=== PATIENT | male | born 1930 | race Caucasian/White ===

== ENCOUNTER 2016-09-16 18:33 | Emergency (ER) | payer MEDICARE, BC ==
[2016-09-16 20:14] LABS: BASO % 0.4 % (0-6); EOS % 7.6 % (0-6); GRAN % 60.7 % (47-80); HEMATOCRIT 39.4 % (42.0-52.0); HEMOGLOBIN 12.7 gm/dl (14.0-18.0); LYMPH % 21.5 % (16-45); MEAN CELL VOLUME 81.2 fl (81-97); MEAN CORPUSCULAR HGB CONC 32.2 g/dl (32-36); MEAN PLATELET VOLUME 9.5 fl (7.4-10.4); MONO % 9.8 % (0-9); PLATELET COUNT 191 K/uL (130-400); RED BLOOD COUNT 4.85 M/uL (4.40-5.70); RED CELL DISTRIBUTION WIDTH 14.2 % (11.5-14.5); WHITE BLOOD COUNT W/O DIFF 7.8 K/uL (4.2-12.2)
[2016-09-16 20:17] LABS: MEAN CORPUSCULAR HEMOGLOBIN 26.1 pg (27-33)
[2016-09-16 20:18] LABS: BLOOD UREA NITROGEN 14 mg/dL (9-20); CREATININE 0.7 mg/dL (0.66-1.25); EST GLOMERULAR FILTRATION RATE > 60 ml/min; GLUCOSE,RANDOM 104 mg/dL (70-110)
[2016-09-16 20:32] LABS: INR 2.81; PROTHROMBIN TIME (PATIENT) 31.8 SECONDS (9.5-12.1)
--- NOTE | 2016-09-16 20:48 | Emergency Department Record ---
History of Present Illness - General Chief Complaint: Hypertension Stated Complaint: HYPERTENSION Time Seen by Provider: 09/16/16 18:55 Source: Patient Mode of Arrival: Ambulatory Limitations: No limitations - History of Present Illness Initial Comments: pt checked hip bp at home and found it to be 200/ so he came in to be checked out. he has no symptoms. he states his pressure is better now. pt took his night time meds prior to coming in. Complaint: Other Onset/Timin -: Hour(s) Description: Other History of Same: Yes History of Trauma: No Severity: Moderate Improves With: Medication Associated Symptoms: Denies other symptoms - [place] Coma Scale Eye Response: (4) Open spontaneously Motor Response: (6) Obeys commands Verbal Response: (5) Oriented [place] Total: 15 - Related Data Home Medications Medication Instructions Recorded Confirmed Last Taken Carvedilol [Carvedilol] 25 mg PO BID 03/29/14 09/16/16 11/08/15 Digoxin [Digox] 0.125 mg PO DAILY 03/29/14 09/16/16 11/08/15 Warfarin Sodium [Warfarin Sodium] 2.5 mg PO DAILY 03/29/14 11/08/15 11/08/15 Ezetimibe [Zetia] 10 mg PO DAILY 07/11/14 09/16/16 11/08/15 Epinephrine [Epipen 2-Pastor] 0.3 mg IJ NOW 07/25/15 09/16/16 11/08/15 Potassium Gluconate 99 mg PO DAILY 07/25/15 09/16/16 11/08/15 Saw [place] 450 mg PO BID 07/25/15 09/16/16 11/08/15 Colon Health 1 tab PO DAILY 09/16/16 09/16/16 Unknown Metoprolol Succinate 25 mg PO DAILY 09/16/16 09/16/16 Unknown Multivits-Minerals/FA/Lycopene 1 each PO DAILY 09/16/16 09/16/16 Unknown [One Daily Men's Health Tablet] Ubidecarenone [Co Q-10] 100 mg PO DAILY 09/16/16 09/16/16 Unknown Allergies Allergy/AdvReac Type Severity Reaction Status Date / Time bee pollen [Bee Pollen] AdvReac Intermediate SWELLING Verified 11/08/15 09:11 OF THE FACE erythromycin lactobionate AdvReac Intermediate HIVES Verified 11/08/15 09:11 [From Erythrocin] Penicillins AdvReac Intermediate HIVES Verified 11/08/15 09:11 [id number] Reductase AdvReac Intermediate BODY ACHES Verified 11/08/15 09: 11 Inhibitor Travel Screening - Travel/Exposure Within Last 30 Days Have you traveled within the last 30 days?: No - Travel/Exposure Within Last Year Have you traveled outside the [place] in the last year?: No - Additonal Travel Details Have you been exposed to anyone with a communicable illness?: No - Travel Symptoms Symptom Screening: None Review of Systems Reviewed: No additional complaints except as noted below Constitutional: Reports: As per HPI. Denies: Chills, Fever, Malaise, Night sweats, Weakness, Weight change Eyes: Reports: As per HPI. Denies: Eye discharge, Eye pain, Photophobia, Vision change ENT: Reports: As per HPI. Denies: Congestion, Dental pain, Ear pain, Epistaxis , Hearing loss, Throat pain Respiratory: Reports: As per HPI. Denies: Cough, Dyspnea, Hemoptysis, Stridor, Wheezes Cardiovascular: Reports: As per HPI. Denies: Arrhythmia, Chest pain, Dyspnea on exertion, Edema, Murmurs, Orthopnea, Palpitations, Paroxysmal nocturnal dyspnea, Rheumatic Fever, Syncope Endocrine: Reports: As per HPI. Denies: Fatigue, Heat or cold intolerance, Polydipsia, Polyuria Gastrointestinal: Reports: As per HPI. Denies: Abdominal pain, Constipation, Diarrhea, Hematemesis, Hematochezia, Melena, Nausea, Vomiting Genitourinary: Reports: As per HPI. Denies: Dysuria, Frequency, Hematuria, Incontinence, Retention, Testicular pain, Testicular mass, Urgency Musculoskeletal: Reports: As per HPI. Denies: Arthralgia, Back pain, Gout, Joint swelling, Myalgia, Neck pain Skin: Reports: As per HPI. Denies: Bruising, Change in color, Change in hair/ nails, Lesions, Pruritus, Rash Neurological: Reports: As per HPI. Denies: Abnormal gait, Confusion, Headache, Numbness, Paresthesias, Seizure, Tingling, Tremors, Vertigo, Weakness Psychiatric: Reports: As per HPI. Denies: Anxiety, Auditory hallucinations, Depression, Homicidal thoughts, Suicidal thoughts, Visual hallucinations Hematological/Lymphatic: Reports: As per HPI. 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) Hx Pancreatitis: Yes - Hx Genitourinary Disorders: No - ENDOCRINE Hx Endocrine Disorders: Yes Hx Diabetes: Yes ("borderline") Hx Thyroid Disease: Yes - MUSCULOSKELETAL Hx Musculoskeletal Disorders: Yes Hx Arthritis: Yes - PSYCH Hx Psych Problems: No - HEMATOLOGY/ONCOLOGY Hx Hematology/Oncology Disorders: Yes Hx Cancer: Yes (carcinoma face/hand/nose) Hx Blood Transfusions: Yes Hx Blood Transfusion Reaction: No Family Medical History Any Significant Family History?: Yes Hx Cancer: Children, Brother/Sister Hx Diabetes: Brother/Sister *Heart Comment: cousin Hx Kidney Disease: Brother/Sister Hx Stroke: Brother/Sister Physical Exam - General General Appearance: Alert, Oriented x3, Cooperative, No acute distress - Head Head exam: Normal inspection - Eye Eye exam: Normal appearance, PERRL, EOMI Pupils: Normal accommodation - ENT ENT exam: Normal exam, Mucous membranes moist, Normal external ear exam, Normal orophraynx Ear exam: Normal external inspection. negative: External canal tenderness Nasal Exam: Normal inspection. negative: Discharge, Sinus tenderness Mouth exam: Normal external inspection, Tongue normal Teeth exam: Normal inspection. negative: Dental caries Throat exam: Normal inspection. negative: Tonsillar erythema, Tonsillar exudate - Neck Neck exam: Normal inspection, Full ROM. negative: Tenderness - Respiratory Respiratory exam: Normal lung sounds bilaterally. negative: Respiratory distress - Cardiovascular Cardiovascular Exam: Regular rate, Normal rhythm, Normal heart sounds - GI/Abdominal GI/Abdominal exam: Soft, Normal bowel sounds, Pulsatile mass (3cm). negative: Tenderness - Rectal Rectal exam: Deferred - exam: Deferred - Extremities Extremities exam: Normal inspection, Full ROM, Normal capillary refill. negative: Tenderness - Back Back exam: Reports: Normal inspection, Full ROM. Denies: Muscle spasm, Rash noted, Tenderness - Neurological Neurological exam: Alert, CN II-XII intact, Normal gait, Oriented X3 - Psychiatric Psychiatric exam: Normal affect, Normal mood - Skin Skin exam: Dry, Intact, Normal color, Warm Course Vital Signs 09/16/16 18:59 Temperature 97.4 F L Pulse Rate 60 Respiratory 20 Rate Blood Pressure 130/61 Pulse Ox 95 - Reevaluation(s) Reevaluation #1: 09/16/16 20:49 pt feels fine Medical Decision Making - Lab Data Result diagrams: 09/16/16 19:30 09/16/16 19:30 Lab Results 09/16/16 09/16/16 09/16/16 Range/Units 19:30 19:30 19:30 WBC 7.8 (4.2-12.2) K/uL RBC 4.85 (4.40-5.70) M/uL Hgb 12.7 L (14.0-18.0) gm/dl Hct 39.4 L (42.0-52.0) % MCV 81.2 (81-97) fl MCH 26.1 L (27-33) pg MCHC 32.2 (32-36) g/dl RDW 14.2 (11.5-14.5) % Plt Count 191 (130-400) K/uL MPV 9.5 (7.4-10.4) fl Gran % 60.7 (47-80) % Lymphocytes % 21.5 (16-45) % Monocytes % 9.8 H (0-9) % Eosinophils % 7.6 H (0-6) % Basophils % 0.4 (0-6) % PT 31.8 H (9.5-12.1) SECONDS INR 2.81 Sodium 139 (136-145) mmol/L Potassium 4.3 (3.5-5.1) mmol/L Chloride 99 (98-107) mmol/L Carbon Dioxide 27.0 (22-30) mmol/L Anion Gap 13.0 (7-16) BUN 14 (9-20) mg/dL Creatinine 0.7 (0.66-1.25) mg/dL Estimated GFR > 60 ml/min Random Glucose 104 (70-110) mg/dL Calcium 9.0 (8.5-10.1) mg/dL Digoxin 1.40 (0.9-2.0) ng/mL Disposition Disposition: Discharge Clinical Impression: Hypertension Qualifiers: Hypertension type: essential hypertension Qualified Code(s): I10 - Essential ( primary) hypertension Disposition: Home, Self-Care Condition: (1) Good Instructions: Hypertension (ED) Additional Instructions: follow up with family doctor. return sooner if worse. Forms: Patient Portal Access
[2016-09-16 20:54] LABS: THYROID STIMULATING HORMONE 1.61 uIU/ml (0.465-4.68)
== END 2016-09-16 20:56 | disposition home or self-care (01) ==
LOC: ER 18:33
DX: I10 Essential (primary) hypertension (principal); Z87.891 Personal history of nicotine dependence; Z79.01 Long term (current) use of anticoagulants; I25.2 Old myocardial infarction
CPT/HCPCS: 80048; 80162; 84443; 85025; 85610; 99283

== ENCOUNTER 2016-11-10 09:43 | Emergency (ER) | payer MEDICARE, BC ==
[2016-11-10] MEDS ORDERED: ASPIRIN 81 MG CHEWABLE TABLET PO ONE (10:14)
[2016-11-10 10:59] LABS: BASO % 0.3 % (0-6); EOS % 3.9 % (0-6); HEMATOCRIT 39.1 % (42.0-52.0); HEMOGLOBIN 12.8 gm/dl (14.0-18.0); LYMPH % 8.5 % (16-45); MEAN CELL VOLUME 80.3 fl (81-97); MEAN CORPUSCULAR HGB CONC 32.7 g/dl (32-36); MEAN PLATELET VOLUME 8.8 fl (7.4-10.4); MONO % 8.3 % (0-9); PLATELET COUNT 168 K/uL (130-400); RED BLOOD COUNT 4.87 M/uL (4.40-5.70); RED CELL DISTRIBUTION WIDTH 14.3 % (11.5-14.5); WHITE BLOOD COUNT W/O DIFF 9.7 K/uL (4.2-12.2)
[2016-11-10 11:00] LABS: MEAN CORPUSCULAR HEMOGLOBIN 26.2 pg (27-33)
[2016-11-10 11:15] LABS: ANION GAP 8.1 (7-16); BLOOD UREA NITROGEN 11 mg/dL (9-20); CARBON DIOXIDE 24.9 mmol/L (22-30); CREATINE PHOSPHOKINASE 46 U/L (55-170); CREATININE 0.7 mg/dL (0.66-1.25); EST GLOMERULAR FILTRATION RATE > 60 ml/min; GLUCOSE,RANDOM 132 mg/dL (70-110)
[2016-11-10 11:27] LABS: CKMB 0.8 ug/L (0-6)
[2016-11-10 11:28] LABS: TROPONIN I < 0.012 ng/mL (0.00-0.034)
[2016-11-10 14:32] LABS: INR 2.73; PROTHROMBIN TIME (PATIENT) 30.8 SECONDS (9.5-12.1)
--- NOTE | 2016-11-10 14:42 | Emergency Department Record ---
History of Present Illness - General Chief Complaint: Chest Pain Stated Complaint: CHEST PAIN Time Seen by Provider: 11/10/16 10:02 Source: Patient Mode of Arrival: Ambulatory Limitations: No limitations - History of Present Illness Initial Comments: pt had an episode of cp this am. he also noted that his bp was low. pt took a ntg for the cp and then had a near syncopal event. 911 was called. when pt arrived his pressure was 100/ and cp was gone. he states he was started on a second bp med by his chelation dr. SHIN Complaint: Chest pain Onset/Timin -: Hour(s) Onset: Associated with drug use Pain Location: Left chest Pain Radiation: None Quality: Aching Consistency: Now resolved Improves With: Nitroglycerin Treatments Prior to Arrival: Nitroglycerin - Related Data Home Medications Medication Instructions Recorded Confirmed Last Taken Carvedilol [Carvedilol] 25 mg PO BID 03/29/14 09/16/16 11/08/15 Digoxin [Digox] 0.125 mg PO DAILY 03/29/14 09/16/16 11/08/15 Warfarin Sodium [Warfarin Sodium] 2.5 mg PO DAILY 03/29/14 11/08/15 11/08/15 Ezetimibe [Zetia] 10 mg PO DAILY 07/11/14 09/16/16 11/08/15 Epinephrine [Epipen 2-Pastor] 0.3 mg IJ NOW 07/25/15 09/16/16 11/08/15 Potassium Gluconate 99 mg PO DAILY 07/25/15 09/16/16 11/08/15 Saw [place] 450 mg PO BID 07/25/15 09/16/16 11/08/15 Colon Health 1 tab PO DAILY 09/16/16 09/16/16 Unknown Metoprolol Succinate 25 mg PO DAILY 09/16/16 09/16/16 Unknown Multivits-Minerals/FA/Lycopene 1 each PO DAILY 09/16/16 09/16/16 Unknown [One Daily Men's Health Tablet] Ubidecarenone [Co Q-10] 100 mg PO DAILY 09/16/16 09/16/16 Unknown Allergies Allergy/AdvReac Type Severity Reaction Status Date / Time bee pollen [Bee Pollen] AdvReac Intermediate SWELLING Verified 11/08/15 09:11 OF THE FACE erythromycin lactobionate AdvReac Intermediate HIVES Verified 11/08/15 09:11 [From Erythrocin] Penicillins AdvReac Intermediate HIVES Verified 11/08/15 09:11 [id number]-Duv Reductase AdvReac Intermediate BODY ACHES Verified 11/08/15 09: 11 Inhibitor Travel Screening - Travel/Exposure Within Last 30 Days Have you traveled within the last 30 days?: No - Travel/Exposure Within Last Year Have you traveled outside the [place] in the last year?: No - Additonal Travel Details Have you been exposed to anyone with a communicable illness?: No - Travel Symptoms Symptom Screening: None Review of Systems Reviewed: No additional complaints except as noted below Constitutional: Reports: As per HPI. Denies: Chills, Fever, Malaise, Night sweats, Weakness, Weight change Eyes: Reports: As per HPI. Denies: Eye discharge, Eye pain, Photophobia, Vision change ENT: Reports: As per HPI. Denies: Congestion, Dental pain, Ear pain, Epistaxis , Hearing loss, Throat pain Respiratory: Reports: As per HPI. Denies: Cough, Dyspnea, Hemoptysis, Stridor, Wheezes Cardiovascular: Reports: As per HPI. Denies: Arrhythmia, Chest pain, Dyspnea on exertion, Edema, Murmurs, Orthopnea, Palpitations, Paroxysmal nocturnal dyspnea, Rheumatic Fever, Syncope Endocrine: Reports: As per HPI. Denies: Fatigue, Heat or cold intolerance, Polydipsia, Polyuria Gastrointestinal: Reports: As per HPI. Denies: Abdominal pain, Constipation, Diarrhea, Hematemesis, Hematochezia, Melena, Nausea, Vomiting Genitourinary: Reports: As per HPI. Denies: Dysuria, Frequency, Hematuria, Incontinence, Retention, Testicular pain, Testicular mass, Urgency Musculoskeletal: Reports: As per HPI. Denies: Arthralgia, Back pain, Gout, Joint swelling, Myalgia, Neck pain Skin: Reports: As per HPI. Denies: Bruising, Change in color, Change in hair/ nails, Lesions, Pruritus, Rash Neurological: Reports: As per HPI. Denies: Abnormal gait, Confusion, Headache, Numbness, Paresthesias, Seizure, Tingling, Tremors, Vertigo, Weakness Psychiatric: Reports: As per HPI. Denies: Anxiety, Auditory hallucinations, Depression, Homicidal thoughts, Suicidal thoughts, Visual hallucinations Hematological/Lymphatic: Reports: As per HPI. 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) Hx Pancreatitis: Yes - Hx Genitourinary Disorders: No - ENDOCRINE Hx Endocrine Disorders: Yes Hx Diabetes: Yes ("borderline") Hx Thyroid Disease: Yes - MUSCULOSKELETAL Hx Musculoskeletal Disorders: Yes Hx Arthritis: Yes - PSYCH Hx Psych Problems: No - HEMATOLOGY/ONCOLOGY Hx Hematology/Oncology Disorders: Yes Hx Cancer: Yes (carcinoma face/hand/nose) Hx Blood Transfusions: Yes Hx Blood Transfusion Reaction: No Family Medical History Any Significant Family History?: No Hx Cancer: Children, Brother/Sister Hx Diabetes: Brother/Sister *Heart Comment: cousin Hx Kidney Disease: Brother/Sister Hx Stroke: Brother/Sister Physical Exam - General General Appearance: Alert, Oriented x3, Cooperative, No acute distress - Head Head exam: Normal inspection - Eye Eye exam: Normal appearance, PERRL, EOMI Pupils: Normal accommodation - ENT ENT exam: Normal exam, Mucous membranes moist, Normal external ear exam, Normal orophraynx Ear exam: Normal external inspection. negative: External canal tenderness Nasal Exam: Normal inspection. negative: Discharge, Sinus tenderness Mouth exam: Normal external inspection, Tongue normal Teeth exam: Normal inspection. negative: Dental caries Throat exam: Normal inspection. negative: Tonsillar erythema, Tonsillar exudate - Neck Neck exam: Normal inspection, Full ROM. negative: Tenderness - Respiratory Respiratory exam: Normal lung sounds bilaterally. negative: Respiratory distress - Cardiovascular Cardiovascular Exam: Regular rate, Normal rhythm, Normal heart sounds - GI/Abdominal GI/Abdominal exam: Soft, Normal bowel sounds. negative: Tenderness - Rectal Rectal exam: Deferred - exam: Deferred - Extremities Extremities exam: Normal inspection, Full ROM, Normal capillary refill. negative: Tenderness - Back Back exam: Reports: Normal inspection, Full ROM. Denies: Muscle spasm, Rash noted, Tenderness - Neurological Neurological exam: Alert, CN II-XII intact, Normal gait, Oriented X3 - Psychiatric Psychiatric exam: Normal affect, Normal mood - Skin Skin exam: Dry, Intact, Normal color, Warm Course Vital Signs 11/10/16 11/10/16 11/10/16 09:46 10:00 11:30 Temperature 97.4 F L Pulse Rate 84 Pulse Rate [ 84 75 Pulse Ox Probe] Respiratory 18 18 16 Rate Blood Pressure 128/76 Blood Pressure 101/63 99/63 [Right Arm] Pulse Ox 98 98 98 11/10/16 11/10/16 11/10/16 12:00 13:32 14:06 Temperature Pulse Rate Pulse Rate [ 76 78 103 H Pulse Ox Probe] Respiratory 16 18 20 Rate Blood Pressure Blood Pressure 115/69 125/76 120/82 [Right Arm] Pulse Ox 98 98 95 - Reevaluation(s) Reevaluation #1: 11/10/16 14:42 pts thoracic aneurysm was discussed with dr delaney and with dr burgess who will see pt in follow up. both agreed with stopping metoprolol Medical Decision Making - Lab Data Result diagrams: 11/10/16 10:20 11/10/16 10:15 Lab Results 11/10/16 11/10/16 11/10/16 Range/Units 10:15 10:15 10:20 WBC 9.7 (4.2-12.2) K/uL RBC 4.87 (4.40-5.70) M/uL Hgb 12.8 L (14.0-18.0) gm/dl Hct 39.1 L (42.0-52.0) % MCV 80.3 L (81-97) fl MCH 26.2 L (27-33) pg MCHC 32.7 (32-36) g/dl RDW 14.3 (11.5-14.5) % Plt Count 168 (130-400) K/uL MPV 8.8 (7.4-10.4) fl Gran % 79.0 (47-80) % Lymphocytes % 8.5 L (16-45) % Monocytes % 8.3 (0-9) % Eosinophils % 3.9 (0-6) % Basophils % 0.3 (0-6) % PT (9.5-12.1) SECONDS INR D-Dimer 1.57 H (0-0.59) mg/L FEU Sodium 140 (136-145) mmol/L Potassium 4.0 (3.5-5.1) mmol/L Chloride 107 (98-107) mmol/L Carbon Dioxide 24.9 (22-30) mmol/L Anion Gap 8.1 (7-16) BUN 11 (9-20) mg/dL Creatinine 0.7 (0.66-1.25) mg/dL Estimated GFR > 60 ml/min Random Glucose 132 H (70-110) mg/dL Calcium 8.5 (8.5-10.1) mg/dL Creatine Kinase 46 L (55-170) U/L CK-MB (CK-2) 0.8 (0-6) ug/L Troponin I < 0.012 (0.00-0.034) ng/mL 11/10/16 Range/Units 10:55 WBC (4.2-12.2) K/uL RBC (4.40-5.70) M/uL Hgb (14.0-18.0) gm/dl Hct (42.0-52.0) % MCV (81-97) fl MCH (27-33) pg MCHC (32-36) g/dl RDW (11.5-14.5) % Plt Count (130-400) K/uL MPV (7.4-10.4) fl Gran % (47-80) % Lymphocytes % (16-45) % Monocytes % (0-9) % Eosinophils % (0-6) % Basophils % (0-6) % PT 30.8 H (9.5-12.1) SECONDS INR 2.73 D-Dimer (0-0.59) mg/L FEU Sodium (136-145) mmol/L Potassium (3.5-5.1) mmol/L Chloride (98-107) mmol/L Carbon Dioxide (22-30) mmol/L Anion Gap (7-16) BUN (9-20) mg/dL Creatinine (0.66-1.25) mg/dL Estimated GFR ml/min Random Glucose (70-110) mg/dL Calcium (8.5-10.1) mg/dL Creatine Kinase (55-170) U/L CK-MB (CK-2) (0-6) ug/L Troponin I (0.00-0.034) ng/mL Disposition Disposition: Discharge Clinical Impression: Near syncope, Thoracic aortic aneurysm without rupture Chest pain Qualifiers: Chest pain type: unspecified Qualified Code(s): R07.9 - Chest pain, unspecified Disposition: Home, Self-Care Condition: (1) Good Instructions: Chest Pain (ED), Thoracic Aortic Aneurysm (ED), Hypotension (ED) Additional Instructions: follow up with dr delaney and dr burgess. return sooner if worse. stop metoprolol. Forms: Patient Portal Access
[2016-11-10 15:04] LABS: CKMB 0.9 ug/L (0-6)
[2016-11-10 15:05] LABS: TROPONIN I < 0.012 ng/mL (0.00-0.034)
--- NOTE | 2016-11-14 07:32 | RADIOLOGY REPORT ---
EXAM: CHEST, TWO VIEWS HISTORY: DIFFICULTY BREATHING. TECHNIQUE: Frontal and lateral views of the chest were obtained. Comparison: 09/21/15 chest. FINDINGS: The heart size is stable. Stable post surgical change with atheromatous change of the thoracic aorta. Stable elevation of the right hemidiaphragm. Minor subsegmental atelectasis in each lung base. The lungs are otherwise clear. No pneumothorax. IMPRESSION: NO ACUTE CARDIOPULMONARY PROCESS. CHRONIC FINDINGS ABOVE. JOB NUMBER: [id number] [facility]
--- NOTE | 2016-11-14 07:37 | CT ANGIOGRAM REPORT ---
EXAM: CTA OF THE CHEST HISTORY: CHEST HEAVINESS. TECHNIQUE: CTA of the chest was performed following IV administration of 100 ml of Omnipaque 350 contrast. Axial images were obtained with coronal and sagittal MIP reconstructions performed on a dedicated workstation. Comparison: None. FINDINGS: Suboptimal opacification of the thoracic aorta. The pulmonary arterial tree opacifies normally. No intraluminal filling defect to suggest pulmonary embolus. Aneurysmal dilatation of the ascending thoracic aorta with a maximal diameter of 4.4 cm AP x 4.2 cm transverse. No convincing evidence for dissection. No periaortic fluid collection. No mediastinal or hilar adenopathy. Coronary artery calcification with cardiomegaly. Elevation of the right hemidiaphragm. Limited evaluation of the upper abdomen shows partial visualization of a right renal artery stent. Multiple bilateral renal cysts. Surgical clips in the upper abdomen. The osseous structures are grossly intact. No pneumothorax. Mild emphysematous changes in the upper lobes and apices. Subsegmental atelectasis in the lung bases bilaterally. IMPRESSION: 1. NEGATIVE FOR PULMONARY EMBOLUS. 2. ANEURYSMAL DILATATION OF THE ASCENDING THORACIC AORTA, ABOVE. NO CONVINCING EVIDENCE FOR DISSECTION. 3. CARDIOMEGALY WITH CORONARY ARTERY CALCIFICATION. MULTIPLE BILATERAL RENAL CYSTS. POST SURGICAL CHANGES OF THE UPPER ABDOMEN. J[facility]BER: [id number] [facility]
== END 2016-11-10 15:44 | disposition home or self-care (01) ==
LOC: ER 09:43
DX: R55 Syncope and collapse (principal); I71.2 Thoracic aortic aneurysm, without rupture; R07.9 Chest pain, unspecified; I48.91 Unspecified atrial fibrillation; I10 Essential (primary) hypertension; I25.2 Old myocardial infarction; Z87.891 Personal history of nicotine dependence; Z79.01 Long term (current) use of anticoagulants
CPT/HCPCS: 99284 ×2; 82550; 85025; 85610; 82553; 84484; 80048; 85379; 71020; 71275; 93005; 93010; Q9967

== ENCOUNTER 2016-11-13 03:57 | Inpatient (IN) | payer MEDICARE, BC ==
[2016-11-13] MEDS ORDERED: 0.9 % SODIUM CHLORIDE 1,000 ML BAG IV ONE (04:15)
[2016-11-13] MEDS ORDERED: ONDANSETRON HCL IV 4 MG/2 ML VIAL IV ONE (04:23)
--- NOTE | 2016-11-13 04:25 | Emergency Department Record ---
History of Present Illness - General Chief Complaint: Abdominal Pain Stated Complaint: LOWER ABDOMINAL PAIN Time Seen by Provider: 11/13/16 04:15 Source: Patient Mode of Arrival: Ambulatory - History of Present Illness Initial Comments: The patient states that he had had abdominal pain for about the past 10 days. He was tolerating it until about 3 p.m. when it suddenly worsened. He states he thinks it is his pancreas because he has had pancreatitis in the past. It does NOT radiate through to his back. He also thinks he is constipated, so he took some stool softeners. He denies cp, daisy, f,c, vomiting. He has been nauseated. 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 MD Complaint: Abdominal pain Onset/Timin -: Days(s) Location: Suprapubic, LLQ, RLQ Radiation: Back, R flank Migration to: No migration Severity: Moderate Quality: Aching Consistency: Constant Improves With: Nothing Worsens With: Nothing Associated Symptoms: Denies other symptoms Treatments Prior to Arrival: Prescription analgesics - Related Data Home Medications Medication Instructions Recorded Confirmed Last Taken Carvedilol [Carvedilol] 25 mg PO BID 03/29/14 11/13/16 11/08/15 Digoxin [Digox] 0.125 mg PO DAILY 03/29/14 11/13/16 11/08/15 Warfarin Sodium [Warfarin Sodium] 2.5 mg PO DAILY 03/29/14 11/13/16 11/08/15 Ezetimibe [Zetia] 10 mg PO DAILY 07/11/14 11/13/16 11/08/15 Epinephrine [Epipen 2-Pastor] 0.3 mg IJ NOW 07/25/15 11/13/16 11/08/15 Potassium Gluconate 99 mg PO DAILY 07/25/15 11/13/16 11/08/15 Saw [place] 450 mg PO BID 07/25/15 11/13/16 11/08/15 Colon Health 1 tab PO DAILY 09/16/16 11/13/16 Unknown Metoprolol Succinate 25 mg PO DAILY 09/16/16 11/13/16 Unknown Multivits-Minerals/FA/Lycopene 1 each PO DAILY 09/16/16 11/13/16 Unknown [One Daily Men's Health Tablet] Ubidecarenone [Co Q-10] 100 mg PO DAILY 09/16/16 11/13/16 Unknown Allergies Allergy/AdvReac Type Severity Reaction Status Date / Time bee pollen [Bee Pollen] AdvReac Intermediate SWELLING Verified 11/13/16 04:02 OF THE FACE erythromycin lactobionate AdvReac Intermediate HIVES Verified 11/13/16 04:02 [From Erythrocin] Penicillins AdvReac Intermediate HIVES Verified 11/13/16 04:02 [id number] Reductase AdvReac Intermediate BODY ACHES Verified 11/13/16 04: 02 Inhibitor Travel Screening - Travel/Exposure Within Last 30 Days Have you traveled within the last 30 days?: No - Travel/Exposure Within Last Year Have you traveled outside the [place] in the last year?: No - Additonal Travel Details Have you been exposed to anyone with a communicable illness?: No - Travel Symptoms Symptom Screening: None Review of Systems Reviewed: No additional complaints except as noted below Constitutional: Reports: As per HPI. Denies: Chills, Fever, Malaise, Night sweats, Weakness, Weight change Eyes: Reports: As per HPI. Denies: Eye discharge, Eye pain, Photophobia, Vision change ENT: Reports: As per HPI. Denies: Congestion, Dental pain, Ear pain, Epistaxis , Hearing loss, Throat pain Respiratory: Reports: As per HPI. Denies: Cough, Dyspnea, Hemoptysis, Stridor, Wheezes Cardiovascular: Reports: As per HPI. Denies: Arrhythmia, Chest pain, Dyspnea on exertion, Edema, Murmurs, Orthopnea, Palpitations, Paroxysmal nocturnal dyspnea, Rheumatic Fever, Syncope Endocrine: Reports: As per HPI. Denies: Fatigue, Heat or cold intolerance, Polydipsia, Polyuria Gastrointestinal: Reports: As per HPI. Denies: Abdominal pain, Constipation, Diarrhea, Hematemesis, Hematochezia, Melena, Nausea, Vomiting Genitourinary: Reports: As per HPI. Denies: Dysuria, Frequency, Hematuria, Incontinence, Retention, Testicular pain, Testicular mass, Urgency Musculoskeletal: Reports: As per HPI. Denies: Arthralgia, Back pain, Gout, Joint swelling, Myalgia, Neck pain Skin: Reports: As per HPI. Denies: Bruising, Change in color, Change in hair/ nails, Lesions, Pruritus, Rash Neurological: Reports: As per HPI. Denies: Abnormal gait, Confusion, Headache, Numbness, Paresthesias, Seizure, Tingling, Tremors, Vertigo, Weakness Psychiatric: Reports: As per HPI. Denies: Anxiety, Auditory hallucinations, Depression, Homicidal thoughts, Suicidal thoughts, Visual hallucinations Hematological/Lymphatic: Reports: As per HPI. 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) Hx Pancreatitis: Yes - Hx Genitourinary Disorders: No - ENDOCRINE Hx Endocrine Disorders: Yes Hx Diabetes: Yes ("borderline") Hx Thyroid Disease: Yes - MUSCULOSKELETAL Hx Musculoskeletal Disorders: Yes Hx Arthritis: Yes - PSYCH Hx Psych Problems: No - HEMATOLOGY/ONCOLOGY Hx Hematology/Oncology Disorders: Yes Hx Cancer: Yes (carcinoma face/hand/nose) Hx Blood Transfusions: Yes Hx Blood Transfusion Reaction: No Family Medical History Any Significant Family History?: No Hx Cancer: Children, Brother/Sister Hx Diabetes: Brother/Sister *Heart Comment: cousin Hx Kidney Disease: Brother/Sister Hx Stroke: Brother/Sister Physical Exam - General General Appearance: Alert, Oriented x3, Cooperative, Mild distress (hard of hearig) - Head Head exam: Normal inspection - Eye Eye exam: Normal appearance, PERRL Pupils: Normal accommodation - ENT ENT exam: Normal exam, Mucous membranes moist, Normal external ear exam, Normal orophraynx, Other (hearing aides both ears) Ear exam: Normal external inspection. negative: External canal tenderness Nasal Exam: Normal inspection. negative: Discharge, Sinus tenderness Mouth exam: Normal external inspection, Tongue normal Teeth exam: Normal inspection. negative: Dental caries Throat exam: Normal inspection. negative: Tonsillar erythema, Tonsillar exudate - Neck Neck exam: Normal inspection, Full ROM. negative: Tenderness - Respiratory Respiratory exam: Normal lung sounds bilaterally. negative: Respiratory distress - Cardiovascular Cardiovascular Exam: Regular rate, Normal rhythm, Normal heart sounds - GI/Abdominal GI/Abdominal exam: Soft, Normal bowel sounds, Tenderness (tender on palpation across upper abdomen) - Rectal Rectal exam: Deferred - exam: Deferred - Extremities Extremities exam: Normal inspection, Full ROM, Normal capillary refill. negative: Calf tenderness, Pedal edema, Tenderness - Back Back exam: Reports: Normal inspection, Full ROM. Denies: Muscle spasm, Rash noted, Tenderness - Neurological Neurological exam: Alert, Normal gait, Oriented X3, Reflexes normal - Psychiatric Psychiatric exam: Normal affect, Normal mood - Skin Skin exam: Dry, Intact, Normal color, Warm Course Vital Signs 11/13/16 04:01 Temperature 97.5 F L Pulse Rate [ 78 Pulse Ox Probe] Respiratory 24 Rate Blood Pressure 152/97 [Left Arm] Pulse Ox 96 - Reevaluation(s) Reevaluation #1: More comfortable after morphine. Patient is drinking his contrast. 11/13/16 06:18 Reevaluation #2: Patient to go to CT at 6:45. Care turned over to day shift physician at shift change. 11/13/16 06:38 Medical Decision Making - Data Complexity MDM Data: Labs Ordered and/or Reviewed, EKG Ordered and/or Reviewed - Lab Data Result diagrams: 11/13/16 04:31 11/13/16 04:31 - EKG Data -: EKG Interpreted by Me EKG: No Acute Changes, Unchanged From Previous (prior of 11-10-16--unchanged) Disposition
[2016-11-13] MEDS ORDERED: MORPHINE SULFATE 5 MG/ML PFS IVP ONE (04:33)
[2016-11-13 04:44] LABS: BASO % 0.3 % (0-6); EOS % 4.3 % (0-6); GRAN % 73.3 % (47-80); HEMATOCRIT 39.7 % (42.0-52.0); HEMOGLOBIN 12.8 gm/dl (14.0-18.0); LYMPH % 12.7 % (16-45); MEAN CELL VOLUME 80.7 fl (81-97); MEAN CORPUSCULAR HGB CONC 32.2 g/dl (32-36); MEAN PLATELET VOLUME 9.1 fl (7.4-10.4); MONO % 9.4 % (0-9); PLATELET COUNT 188 K/uL (130-400); RED BLOOD COUNT 4.92 M/uL (4.40-5.70); RED CELL DISTRIBUTION WIDTH 14.8 % (11.5-14.5); WHITE BLOOD COUNT W/O DIFF 9.6 K/uL (4.2-12.2)
[2016-11-13 04:56] LABS: ALBUMIN 3.7 gm/dL (3.5-5.0); ALKALINE PHOSPHATASE 95 U/L (38-126); ALT/SGPT 29 U/L (21-72); ANION GAP 6.6 (7-16); AST/SGOT 19 U/L (17-59); BILIRUBIN,TOTAL 0.65 mg/dL (0.2-1.3); BLOOD UREA NITROGEN 15 mg/dL (9-20); CARBON DIOXIDE 27.4 mmol/L (22-30); CREATININE 0.7 mg/dL (0.66-1.25); EST GLOMERULAR FILTRATION RATE > 60 ml/min; GLUCOSE,RANDOM 121 mg/dL (70-110); LIPASE 31 U/L (23-300); TOTAL PROTEIN 6.7 gm/dL (6.3-8.2)
[2016-11-13 06:33] LABS: URINE APPEARANCE CLEAR; URINE BILIRUBIN NEGATIVE (NEGATIVE); URINE BLOOD NEGATIVE (NEGATIVE); URINE COLOR YELLOW; URINE GLUCOSE (UA) NEGATIVE (NEGATIVE); URINE KETONE NEGATIVE (NEGATIVE); URINE NITRITE NEGATIVE (NEGATIVE); URINE PROTEIN NEGATIVE (NEGATIVE); URINE UROBILINOGEN 0.2 E.U./dL (0.20 - 1.00)
[2016-11-13 06:44] LABS: URINE LEUKOCYTE ESTERASE TRACE (NEGATIVE)
[2016-11-13 06:45] LABS: URINE BACTERIA NONE SEEN; URINE EPITHELIAL CELLS 0 - 2 (FEW); URINE RBC 0 - 2 (NONE SEEN); URINE WBC 0 - 2 (0-2/hpf)
--- NOTE | 2016-11-13 08:45 | Emergency Department Record ---
History of Present Illness - General Chief Complaint: Abdominal Pain Stated Complaint: LOWER ABDOMINAL PAIN Time Seen by Provider: 11/13/16 04:15 Source: Patient Mode of Arrival: Ambulatory - History of Present Illness Initial Comments: report from Dr. Gomez and reviewed her chart and he states no vomiting and last BM 2 days ago and he uses dulcolax daily for constipation and he only goes 3 BM's per week and His CT scan shows partial small bowel obstruction with the transition in the upper [place] area and no other significant findings. 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 Patient denies home oxygen. MD Complaint: Abdominal pain Onset/Timin -: Days(s) Location: Suprapubic, LLQ, RLQ Radiation: Back, R flank Migration to: No migration Severity: Moderate Quality: Aching Consistency: Constant Improves With: Nothing Worsens With: Nothing Associated Symptoms: Denies other symptoms Treatments Prior to Arrival: Prescription analgesics - Related Data Home Medications Medication Instructions Recorded Confirmed Last Taken Carvedilol [Carvedilol] 25 mg PO BID 03/29/14 11/13/16 11/08/15 Digoxin [Digox] 0.125 mg PO DAILY 03/29/14 11/13/16 11/08/15 Warfarin Sodium [Warfarin Sodium] 2.5 mg PO DAILY 03/29/14 11/13/16 11/08/15 Ezetimibe [Zetia] 10 mg PO DAILY 07/11/14 11/13/16 11/08/15 Epinephrine [Epipen 2-Pastor] 0.3 mg IJ NOW 07/25/15 11/13/16 11/08/15 Potassium Gluconate 99 mg PO DAILY 07/25/15 11/13/16 11/08/15 Saw [place] 450 mg PO BID 07/25/15 11/13/16 11/08/15 Colon Health 1 tab PO DAILY 09/16/16 11/13/16 Unknown Multivits-Minerals/FA/Lycopene 1 each PO DAILY 09/16/16 11/13/16 Unknown [One Daily Men's Health Tablet] Ubidecarenone [Co Q-10] 100 mg PO DAILY 09/16/16 11/13/16 Unknown Allergies Allergy/AdvReac Type Severity Reaction Status Date / Time bee pollen [Bee Pollen] AdvReac Intermediate SWELLING Verified 11/13/16 04:02 OF THE FACE erythromycin lactobionate AdvReac Intermediate HIVES Verified 11/13/16 04:02 [From Erythrocin] Penicillins AdvReac Intermediate HIVES Verified 11/13/16 04:02 [id number] Reductase AdvReac Intermediate BODY ACHES Verified 11/13/16 04: 02 Inhibitor Travel Screening - Travel/Exposure Within Last 30 Days Have you traveled within the last 30 days?: No - Travel/Exposure Within Last Year Have you traveled outside the [place] in the last year?: No - Additonal Travel Details Have you been exposed to anyone with a communicable illness?: No - Travel Symptoms Symptom Screening: None Review of Systems Constitutional: Reports: As per HPI. Denies: Chills, Fever, Malaise, Night sweats, Weakness, Weight change Eyes: Reports: As per HPI. Denies: Eye discharge, Eye pain, Photophobia, Vision change ENT: Reports: As per HPI. Denies: Congestion, Dental pain, Ear pain, Epistaxis , Hearing loss, Throat pain Respiratory: Reports: As per HPI. Denies: Cough, Dyspnea, Hemoptysis, Stridor, Wheezes Cardiovascular: Reports: As per HPI. Denies: Arrhythmia, Chest pain, Dyspnea on exertion, Edema, Murmurs, Orthopnea, Palpitations, Paroxysmal nocturnal dyspnea, Rheumatic Fever, Syncope Endocrine: Reports: As per HPI. Denies: Fatigue, Heat or cold intolerance, Polydipsia, Polyuria Gastrointestinal: Reports: As per HPI, Abdominal pain, Nausea. Denies: Constipation, Diarrhea, Hematemesis, Hematochezia, Melena, Vomiting Genitourinary: Reports: As per HPI. Denies: Dysuria, Frequency, Hematuria, Incontinence, Retention, Testicular pain, Testicular mass, Urgency Musculoskeletal: Reports: As per HPI. Denies: Arthralgia, Back pain, Gout, Joint swelling, Myalgia, Neck pain Skin: Reports: As per HPI. Denies: Bruising, Change in color, Change in hair/ nails, Lesions, Pruritus, Rash Neurological: Reports: As per HPI. Denies: Abnormal gait, Confusion, Headache, Numbness, Paresthesias, Seizure, Tingling, Tremors, Vertigo, Weakness Psychiatric: Reports: As per HPI. Denies: Anxiety, Auditory hallucinations, Depression, Homicidal thoughts, Suicidal thoughts, Visual hallucinations Hematological/Lymphatic: Reports: As per HPI. 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) Hx Pancreatitis: Yes - Hx Genitourinary Disorders: No - ENDOCRINE Hx Endocrine Disorders: Yes Hx Diabetes: Yes ("borderline") Hx Thyroid Disease: Yes - MUSCULOSKELETAL Hx Musculoskeletal Disorders: Yes Hx Arthritis: Yes - PSYCH Hx Psych Problems: No - HEMATOLOGY/ONCOLOGY Hx Hematology/Oncology Disorders: Yes Hx Cancer: Yes (carcinoma face/hand/nose) Hx Blood Transfusions: Yes Hx Blood Transfusion Reaction: No Family Medical History Any Significant Family History?: No Hx Cancer: Children, Brother/Sister Hx Diabetes: Brother/Sister *Heart Comment: cousin Hx Kidney Disease: Brother/Sister Hx Stroke: Brother/Sister Physical Exam - General General Appearance: Alert, Oriented x3, Cooperative, No acute distress - Head Head exam: Normal inspection - Eye Eye exam: Normal appearance, PERRL Pupils: Normal accommodation - ENT ENT exam: Normal exam, Mucous membranes moist, Normal external ear exam, Normal orophraynx, TM's normal bilaterally Ear exam: Normal external inspection. negative: External canal tenderness Nasal Exam: Normal inspection. negative: Discharge, Sinus tenderness Mouth exam: Normal external inspection, Tongue normal Teeth exam: Normal inspection. negative: Dental caries Throat exam: Normal inspection. negative: Tonsillar erythema, Tonsillar exudate - Neck Neck exam: Normal inspection, Full ROM. negative: Tenderness - Respiratory Respiratory exam: Normal lung sounds bilaterally. negative: Respiratory distress - Cardiovascular Cardiovascular Exam: Regular rate, Normal rhythm, Normal heart sounds - GI/Abdominal GI/Abdominal exam: Soft, Normal bowel sounds. negative: Tenderness - Rectal Rectal exam: Other (brown stool and no impaction but stool is hard) - exam: Deferred - Extremities Extremities exam: Normal inspection, Full ROM, Normal capillary refill. negative: Tenderness - Back Back exam: Reports: Normal inspection, Full ROM. Denies: Muscle spasm, Rash noted, Tenderness - Neurological Neurological exam: Alert, Normal gait, Oriented X3, Reflexes normal - Psychiatric Psychiatric exam: Normal affect, Normal mood - Skin Skin exam: Dry, Intact, Normal color, Warm Course Vital Signs 11/13/16 11/13/16 11/13/16 04:01 04:23 04:42 Temperature 97.5 F L 97.5 F L Pulse Rate [ 78 69 58 L Pulse Ox Probe] Respiratory 24 26 H 20 Rate Blood Pressure 152/97 108/70 144/72 [Left Arm] Pulse Ox 96 93 L 97 11/13/16 05:35 Temperature Pulse Rate [ 62 Pulse Ox Probe] Respiratory 18 Rate Blood Pressure 131/79 [Left Arm] Pulse Ox 95 - Reevaluation(s) Reevaluation #1: rectal brown stool no impaction 11/13/16 09:45 11/13/16 09:56 Reevaluation #2: abdominal pain is gone and was given morphine in the ED. primary Dr. is Dr. Schneider. Talked to Dr. Garcia and conservative therapy and if he gets worse will transfer him to [place]. Stop coumadin 11/13/16 09:56 Discuss[address] the [address] CT scan with radiologist and his thoracic aneurysm is 4.o cm and in 2013 it was 3.9 cm stable and the abdominal aneurysm is stable too. Discussed case with Dr. De Paz and will admit. 11/13/16 10:04 11/13/16 10:13 11/13/16 11:03 11/13/16 11:08 Medical Decision Making - Lab Data Result diagrams: 11/13/16 04:31 11/13/16 04:31 Lab Results 11/13/16 11/13/16 11/13/16 Range/Units 04:31 04:31 06:30 WBC 9.6 (4.2-12.2) K/uL RBC 4.92 (4.40-5.70) M/uL Hgb 12.8 L (14.0-18.0) gm/dl Hct 39.7 L (42.0-52.0) % MCV 80.7 L (81-97) fl MCH 26.0 L (27-33) pg MCHC 32.2 (32-36) g/dl RDW 14.8 H (11.5-14.5) % Plt Count 188 (130-400) K/uL MPV 9.1 (7.4-10.4) fl Gran % 73.3 (47-80) % Lymphocytes % 12.7 L (16-45) % Monocytes % 9.4 H (0-9) % Eosinophils % 4.3 (0-6) % Basophils % 0.3 (0-6) % Sodium 138 (136-145) mmol/L Potassium 4.4 (3.5-5.1) mmol/L Chloride 104 (98-107) mmol/L Carbon Dioxide 27.4 (22-30) mmol/L Anion Gap 6.6 L (7-16) BUN 15 (9-20) mg/dL Creatinine 0.7 (0.66-1.25) mg/dL Estimated GFR > 60 ml/min Random Glucose 121 H (70-110) mg/dL Calcium 9.3 (8.5-10.1) mg/dL Total Bilirubin 0.65 (0.2-1.3) mg/dL Direct Bilirubin 0.0 (0-0.3) mg/dL AST 19 (17-59) U/L ALT 29 (21-72) U/L Alkaline Phosphatase 95 (38-126) U/L Total Protein 6.7 (6.3-8.2) gm/dL Albumin 3.7 (3.5-5.0) gm/dL Lipase 31 (23-300) U/L Urine Color Yellow Urine Appearance Clear Urine pH 7.5 (5.0-8.0) Ur Specific [place] 1.010 (1.002-1.030) Urine Protein Negative (NEGATIVE) Urine Glucose (UA) Negative (NEGATIVE) Urine Ketones Negative (NEGATIVE) Urine Blood Negative (NEGATIVE) Urine Nitrite Negative (NEGATIVE) Urine Bilirubin Negative (NEGATIVE) Urine Urobilinogen 0.2 (0.20 - 1.00) E.U./dL Ur Leukocyte Esterase Trace H (NEGATIVE) Urine RBC 0 - 2 (NONE SEEN) Urine WBC 0 - 2 (0-2/hpf) Ur Epithelial Cells 0 - 2 (FEW) Urine Bacteria None seen Disposition Clinical Impression: Partial small bowel obstruction, History of atrial fibrillation, Anticoagulated on Coumadin, History of COPD Abdominal pain Qualifiers: Abdominal location: epigastric Qualified Code(s): R10.13 - Epigastric pain Decision to Admit: Admit from ER Forms: Patient Portal Access
[2016-11-13] MEDS ORDERED: 0.9 % SODIUM CHLORIDE 1000ML 1,000 ML IV ONE ×2 (09:03)
[2016-11-13 09:16] LABS: INR 3.3; PROTHROMBIN TIME (PATIENT) 37.3 SECONDS (9.5-12.1)
[2016-11-13] MEDS ORDERED: IPRATROPIUM/ALBUTEROL (0.5MG/3MG) NEB INH PRN (11:11)
[2016-11-13] MEDS ORDERED: LEVOTHYROXINE SODIUM 125 MCG TABLET PO SCH (11:30)
[2016-11-13] MEDS: SYNTHROID (DAW) 175MCG TABLET PO SCH (12:35)
[2016-11-13] MEDS: DIGOXIN 125 MCG TABLET PO SCH (12:35)
[2016-11-13] MEDS: CARVEDILOL 12.5 MG TABLET PO SCH ×2 (12:35→21:20)
[2016-11-13] MEDS: EZETIMIBE 10 MG TABLET PO SCH (12:35)
[2016-11-13] MEDS ORDERED: POLYETHYLENE GLYCOL 3350 238GM BOTTLE PO SCH (15:45)
[2016-11-14] MEDS: SYNTHROID (DAW) 175MCG TABLET PO SCH (06:19)
[2016-11-14 06:45] LABS: BASO % 0.4 % (0-6); EOS % 6.1 % (0-6); GRAN % 65.9 % (47-80); HEMATOCRIT 37.5 % (42.0-52.0); HEMOGLOBIN 11.7 gm/dl (14.0-18.0); LYMPH % 17.9 % (16-45); MEAN CELL VOLUME 81.3 fl (81-97); MEAN CORPUSCULAR HGB CONC 31.2 g/dl (32-36); MEAN PLATELET VOLUME 9.1 fl (7.4-10.4); MONO % 9.7 % (0-9); PLATELET COUNT 182 K/uL (130-400); RED BLOOD COUNT 4.61 M/uL (4.40-5.70); RED CELL DISTRIBUTION WIDTH 14.4 % (11.5-14.5); WHITE BLOOD COUNT W/O DIFF 6.9 K/uL (4.2-12.2)
[2016-11-14 06:46] LABS: MEAN CORPUSCULAR HEMOGLOBIN 25.3 pg (27-33)
--- NOTE | 2016-11-14 06:50 | History & Physical ---
History of Present Illness - Date of Service Date of Service for History & Physical: 11/14/16 - History of Present Illness Admitting Diagnosis: partial small bowel obstruction History of Present Illness: 86yo male with CC of epigastric pain. He has a history of CAD, GA with CABG 10 years ago, afib, pacemaker/defibrillator placement, HTN, GABI with CPAP use, pancreatitis 15 years ago, hypothyroidism, pre-diabetes, arthritis and skin cancer. Patient began having epigastric abdominal pain about 10 days prior to ED presentation. It became more severe and felt similar to his previous episode of pancreatitis so came in to the ED. While in the ED, patient had improvement in his abdominal pain with morphine. His CBC, CMP were unremarkable. Urine showed trace amount of leukocyte esterase. Patient had CT abdomen that showed a focal loop of jejunum with thickening causing partial obstruction. Stable thoracic aortic aneurysms. Case was discussed with Dr. Garcia, on-call for surgery, with ED physician. He was admitted to [facility] for partial SBO. 11/14/16- Patient is feeling much better today. He had a large bowel movement this morning and has had almost complete resolution of his epigastric pain. He denies nausea, vomiting, black or bloody stools. Says prior to this BM he had not had one in 3 days which is fairly common for him. takes dulcolax on a daily basis for constipation. He had open heart surgery but no other abdominal surgeries. PCP: [facility] - Travel/Exposure Within Last 30 Days Have you traveled within the last 30 days?: No - Travel/Exposure Within Last Year Have you traveled outside the [place] in the last year?: No - Additonal Travel Details Have you been exposed to anyone with a communicable illness?: No - Travel Symptoms Symptom Screening: None Review of Systems Constitutional: Reports: As per HPI. Denies: Chills, Fever, Malaise, Night sweats, Weakness, Weight change Eyes: Reports: As per HPI. Denies: Eye discharge, Eye pain, Photophobia, Vision change ENT: Reports: As per HPI. Denies: Congestion, Dental pain, Ear pain, Epistaxis , Hearing loss, Throat pain Respiratory: Reports: As per HPI. Denies: Cough, Dyspnea, Hemoptysis, Stridor, Wheezes Cardiovascular: Reports: As per HPI. Denies: Arrhythmia, Chest pain, Dyspnea on exertion, Edema, Murmurs, Orthopnea, Palpitations, Paroxysmal nocturnal dyspnea, Rheumatic Fever, Syncope Endocrine: Reports: As per HPI. Denies: Fatigue, Heat or cold intolerance, Polydipsia, Polyuria Gastrointestinal: Reports: As per HPI, Abdominal pain, Constipation, Nausea. Denies: Diarrhea, Hematemesis, Hematochezia, Melena, Vomiting Genitourinary: Reports: As per HPI. Denies: Dysuria, Frequency, Hematuria, Incontinence, Retention, Testicular pain, Testicular mass, Urgency Musculoskeletal: Reports: As per HPI. Denies: Arthralgia, Back pain, Gout, Joint swelling, Myalgia, Neck pain Skin: Reports: As per HPI. Denies: Bruising, Change in color, Change in hair/ nails, Lesions, Pruritus, Rash Neurological: Reports: As per HPI. Denies: Abnormal gait, Confusion, Headache, Numbness, Paresthesias, Seizure, Tingling, Tremors, Vertigo, Weakness Psychiatric: Reports: As per HPI. Denies: Anxiety, Auditory hallucinations, Depression, Homicidal thoughts, Suicidal thoughts, Visual hallucinations Hematological/Lymphatic: Reports: As per HPI. 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) Hx Pancreatitis: Yes - Hx Genitourinary Disorders: No - ENDOCRINE Hx Endocrine Disorders: Yes Hx Diabetes: Yes ("borderline") Hx Thyroid Disease: Yes - MUSCULOSKELETAL Hx Musculoskeletal Disorders: Yes Hx Arthritis: Yes - PSYCH Hx Psych Problems: No - HEMATOLOGY/ONCOLOGY Hx Hematology/Oncology Disorders: Yes Hx Cancer: Yes (carcinoma face/hand/nose) Hx Blood Transfusions: Yes Hx Blood Transfusion Reaction: No Family Medical History Any Significant Family History?: Yes Hx Cancer: Children, Brother/Sister Hx Diabetes: Brother/Sister *Heart Comment: cousin Hx Kidney Disease: Brother/Sister Hx Stroke: Brother/Sister H&P Meds/Allergies - Allergies Allergies: Allergies Allergy/AdvReac Type Severity Reaction Status Date / Time bee pollen [Bee Pollen] AdvReac Intermediate SWELLING Verified 11/13/16 04:02 OF THE FACE erythromycin lactobionate AdvReac Intermediate HIVES Verified 11/13/16 04:02 [From Erythrocin] Penicillins AdvReac Intermediate HIVES Verified 11/13/16 04:02 [id number] Reductase AdvReac Intermediate BODY ACHES Verified 11/13/16 04: 02 Inhibitor - Home Medications Home Medications Medication Instructions Recorded Confirmed Last Taken Carvedilol [Carvedilol] 25 mg PO BID 03/29/14 11/13/16 11/08/15 Digoxin [Digox] 0.125 mg PO DAILY 03/29/14 11/13/16 11/08/15 Warfarin Sodium [Warfarin Sodium] 2.5 mg PO DAILY 03/29/14 11/13/16 11/08/15 Ezetimibe [Zetia] 10 mg PO DAILY 07/11/14 11/13/16 11/08/15 Epinephrine [Epipen 2-Pastor] 0.3 mg IJ NOW 07/25/15 11/13/16 11/08/15 Potassium Gluconate 99 mg PO DAILY 07/25/15 11/13/16 11/08/15 Saw [place] 450 mg PO BID 07/25/15 11/13/16 11/08/15 Colon Health 1 tab PO DAILY 09/16/16 11/13/16 Unknown Multivits-Minerals/FA/Lycopene 1 each PO DAILY 09/16/16 11/13/16 Unknown [One Daily Men's Health Tablet] Ubidecarenone [Co Q-10] 100 mg PO DAILY 09/16/16 11/13/16 Unknown Levothyroxine Sodium [Synthroid] 175 mcg PO DAILYTHY 11/13/16 11/13/16 Unknown - Active Medications Active Medications: Current Medications Albuterol/Ipratropium (Duoneb) 3 ml INH RESP.Q4H.WA PRN PRN Reason: DIFFICULTY IN BREATHING Carvedilol (Coreg) 25 mg PO BID [facility] Last Admin: 11/13/16 21:20 Dose: 25 mg Digoxin (Lanoxin) 125 mcg PO DAILY [facility] Last Admin: 11/13/16 12:35 Dose: 125 mcg Ezetimibe (Zetia) 10 mg PO DAILY [facility] Last Admin: 11/13/16 12:35 Dose: 10 mg Sodium Chloride () 1,000 mls @ 200 mls/hr IV .Q5H ONE Stop: 11/13/16 14:02 Last Admin: 11/13/16 13:00 Dose: 200 mls/hr Levothyroxine Sodium (Synthroid) 175 mcg PO DAILYTHY [facility] Last Admin: 11/14/16 06:19 Dose: 175 mcg Polyethylene Glycol (Polyethylene Glycol 3350) 17 gm PO DAILY [facility] Last Admin: 11/13/16 18:03 Dose: 17 gm Physical Exam - Vital Signs Vital Signs: Vital Signs - Last 24 Hrs Temp Pulse Pulse Resp BP BP BP 11/14/16 05:33 98.8 F 65 18 136/71 11/14/16 05:28 65 11/14/16 00:50 97.9 F 60 18 100/58 11/13/16 21:08 98.1 F 63 18 111/60 11/13/16 18:00 97.8 F 65 16 117/71 11/13/16 17:49 11/13/16 13:08 20 11/13/16 12:31 97.1 F L 60 18 141/70 11/13/16 12:24 62 16 161/87 Pulse Ox 11/14/16 05:33 97 11/14/16 05:28 97 11/14/16 00:50 95 11/13/16 21:08 97 11/13/16 18:00 97 11/13/16 17:49 98 11/13/16 13:08 11/13/16 12:31 93 L 11/13/16 12:24 98 - General General Appearance: Alert, Oriented x3, Cooperative, No acute distress - Head Head exam: Normal inspection - Eye Eye exam: Normal appearance, PERRL Pupils: Normal accommodation - ENT ENT exam: Normal exam, Mucous membranes moist, Normal external ear exam, Normal orophraynx, TM's normal bilaterally Ear exam: Normal external inspection. negative: External canal tenderness Nasal Exam: Normal inspection. negative: Discharge, Sinus tenderness Mouth exam: Normal external inspection, Tongue normal Teeth exam: Normal inspection. negative: Dental caries Throat exam: Normal inspection. negative: Tonsillar erythema, Tonsillar exudate - Neck Neck exam: Normal inspection, Full ROM. negative: Tenderness - Respiratory Respiratory exam: Normal lung sounds bilaterally. negative: Respiratory distress - Cardiovascular Cardiovascular Exam: Regular rate, Normal rhythm, Normal heart sounds - GI/Abdominal GI/Abdominal exam: Soft, Normal bowel sounds. negative: Distended, Hyperactive bowel sounds, Tenderness - exam: Deferred - Extremities Extremities exam: Normal inspection, Full ROM, Normal capillary refill. negative: Tenderness - Back Back exam: Reports: Normal inspection, Full ROM. Denies: Muscle spasm, Rash noted, Tenderness - Neurological Neurological exam: Alert, Normal gait, Oriented X3, Reflexes normal - Psychiatric Psychiatric exam: Normal affect, Normal mood - Skin Skin exam: Dry, Intact, Normal color, Warm Results - Labs Result Diagrams: 11/14/16 06:20 11/14/16 06:20 Labs Last 24 Hours: Laboratory Results - last 24 hr 11/14/16 06:20 WBC 6.9 RBC 4.61 Hgb 11.7 L Hct 37.5 L MCV 81.3 MCH 25.3 L MCHC 31.2 L RDW 14.4 Plt Count 182 MPV 9.1 Gran % 65.9 Lymphocytes % 17.9 Monocytes % 9.7 H Eosinophils % 6.1 H Basophils % 0.4 - Imaging and Cardiology CT scan - abdomen Status: Report reviewed (focal loop of jejunum with thickening causing partial obstruction) VTE H&P Assessment - Risk for VTE Risk for VTE: No Risk Level: Low Risk Assessment Date: 11/14/16 Risk Assessment Time: 19:55 VTE Orders Placed or Will Be Placed: No VTE Reason for No Prophylaxis: Contraindicated, Not Indicated Plan - Inpatient Certification Inpatient Certification: Admit to inpatient care: Based on my medical assessment, after consideration of patient's risk factors (age, co-morbidities and patient presenting symptoms and acuity), I expect that this patient will remain in the hospital greater than or equal to two midnights and that the services needed warrant inpatient care because: Patient Risk Factors: [age, partial sbo] Estimated length of stay: [24-48H] The patient may reasonably be expected to be discharged or transferred to a hospital within 96 hours after admission to [facility]. Services needed: [IV fluids, IV pain management] Post hospital care (if known): [] I certify that my determination is in accordance with my understanding of Medicare requirements for reasonable and necessary inpatient services. 11/14/16 19:56 - Detailed Diagnosis and Plan (1) Partial small bowel obstruction Current Visit: Yes Status: Acute Base Code: K56.69 - OTHER INTESTINAL OBSTRUCTION Comment: 11/14/16- Improving. Patient reports large BM this morning and almost complete resolution of his epigastric pain. CT abdomen with evidence of focal jejunum thickening causing obstruction. -advance diet to clear liquids -continue miralax 17gm daily -vitals q8H -repeat labs qam (2) Anticoagulated on Coumadin Current Visit: Yes Status: Acute Base Code: Z51.81 - ENCOUNTER FOR THERAPEUTIC DRUG LEVEL MONITORING; Z79.01 - ACCOUNT TECHNICIAN (CURRENT) USE OF ANTICOAGULANTS Comment: 11/14/16- therapeutic on 11/13 with INR of 3.3. Coumadin was not ordered by ED. Will repeat INR tomorrow and have pharmacy dose. (3) Code status needs review Current Visit: Yes Status: Acute Base Code: [id number] - Comment: 11/14/16- Will discuss wiith patient (4) DVT prophylaxis Current Visit: Yes Status: Acute Base Code: [id number] - Comment: 11/14/16- patient therapeutic on coumadin. INR 3.30 on 11/13
[2016-11-14 06:57] LABS: ALB/GLOB RATIO 1.1 (1.1-1.8); ALKALINE PHOSPHATASE 82 U/L (38-126); ALT/SGPT 28 U/L (21-72); ANION GAP 7.3 (7-16); AST/SGOT 17 U/L (17-59); BLOOD UREA NITROGEN 10 mg/dL (9-20); CARBON DIOXIDE 25.7 mmol/L (22-30); CREATININE 0.7 mg/dL (0.66-1.25); EST GLOMERULAR FILTRATION RATE > 60 ml/min; GLUCOSE,RANDOM 82 mg/dL (70-110); TOTAL PROTEIN 5.7 gm/dL (6.3-8.2)
--- NOTE | 2016-11-14 08:13 | CT SCAN REPORT ---
EXAM: CT SCAN OF THE ABDOMEN AND PELVIS WITH CONTRAST HISTORY: MID TO LOW ABDOMINAL PAIN FOR TEN DAYS, NAUSEA, CONSTIPATION. PRIOR APPENDECTOMY. TECHNIQUE: Axial CT scan of the abdomen and pelvis was performed following both oral and IV contrast administration utilizing a dose of 100 ml of Omnipaque 300 as the IV contrast. The preliminary report was provided by [facility]. Comparison: CT dated 05/04/14. FINDINGS: The upper scans demonstrate postop sternotomy. Coronary artery calcification is present. The heart is not enlarged. There is some mild right basilar streaky atelectasis or infiltrate with some elevation of the right hemidiaphragm. There is borderline aneurysmal dilatation of the ascending aorta measuring about 4 cm in diameter appearing essentially unchanged from before. No calcified gallstones are seen within the gallbladder. No definite hepatic, splenic, adrenal, or pancreatic mass identified. There are bilateral renal cysts, at least four on the left with the largest in the upper pole measuring about 4 cm in size, and at least four in the right with the largest in the lower pole measuring 3.5 cm in size. There is probably a fifth tiny, subcentimeter cyst in the upper pole of the right kidney which is too small to accurately characterize by CT density measurement. Surgical clips again seen in the retroperitoneum. Infrarenal abdominal aortic aneurysm again evident, previously measured at about 4.3 cm in transverse x 3.3 cm in AP diameter and today appearing essentially unchanged again measuring about 4.3 cm in transverse x 3.3 cm in AP diameter. Distribution of calcification suggesting a chronic associated localized dissection again noted as before. Surgical clips in the inguinal regions bilaterally as before. There are some mildly prominent lymph nodes in the right inguinal region, the largest is about 1.4 cm in diameter, minimally larger than the approximately 1 cm measurement previously. These are nonspecific. Prostate calcification with mild enlargement of the prostate. Diverticulosis left side of the colon, but no diverticulitis evident. The appendix is not identified consistent with the surgical history. There is a thick walled loop of small bowel in the jejunum in the mid abdomen at about the level of the aortic bifurcation. The small bowel proximal to this is dilated measuring up to about 3.7 cm in diameter. The small bowel distal to this is nondistended, consistent with a component of small bowel obstruction at this level. The etiology of this focal wall thickening in the jejunum is not clear. There is a somewhat rounded filling defect also noted in the dependent portion of the stomach measuring about 4.8 cm in size. This is presumably just some focal residual food content rather than a gastric mass. No free intraperitoneal air or free intraperitoneal fluid identified. Prominent degenerative change in the facets of the lower lumbar spine. Very bright focal density in the spinal canal of the sacrum about 1 cm in size also present previously could be Pantopaque from a prior myelogram. Multilevel degenerative disk disease in the spine. There is a lumbar levoscoliosis. Degenerative arthritis in both hips as well. IMPRESSION: 1. FOCAL LOOP OF JEJUNUM WITH THICKENING IN THE WALL APPARENTLY CAUSING A COMPONENT OF OBSTRUCTION TO THE SMALL BOWEL AT THIS LEVEL. THE ETIOLOGY OF THIS FOCAL JEJUNAL WALL THICKENING IS NOT CLEAR. 2. BILATERAL RENAL CYSTS. 3. FOCAL FILLING DEFECT DEPENDENT PORTION OF THE STOMACH ABOUT 4.8 CM IN SIZE IS PRESUMABLY RESIDUAL GASTRIC CONTENT. 4. POSTOP STERNOTOMY WITH CORONARY ARTERY CALCIFICATION. 5. PERSISTENT ELEVATION OF THE RIGHT HEMIDIAPHRAGM. 6. BORDERLINE ANEURYSMAL DILATATION OF THE ASCENDING AORTA BEFORE. INFRARENAL ABDOMINAL AORTIC ANEURYSM MEASURING ABOUT 4.3 X 3.3 CM IN SIZE UNCHANGED FROM 05/04/14, POSSIBLY WITH A LOCAL DISSECTION PREVIOUSLY NOTED. 7. DIVERTICULOSIS LEFT SIDE OF THE COLON, BUT NO DIVERTICULITIS EVIDENT. 8. PROSTATE CALCIFICATION WITH MILD ENLARGEMENT OF THE PROSTATE. 9. MILDLY ENLARGED RIGHT INGUINAL NODE, NONSPECIFIC. 10. DIFFUSE DEGENERATIVE CHANGE IN THE SPINE. [facility]: [id number] [facility]
[2016-11-14] MEDS: CARVEDILOL 12.5 MG TABLET PO SCH ×2 (09:12→21:48)
[2016-11-14] MEDS: DIGOXIN 125 MCG TABLET PO SCH (09:12)
[2016-11-14] MEDS: POLYETHYLENE GLY 17 GM PACKET PO SCH (09:13)
[2016-11-14] MEDS: EZETIMIBE 10 MG TABLET PO SCH (09:13)
[2016-11-14] MEDS: ACETAMINOPHEN/CODEINE TABLET PO PRN (15:43)
[2016-11-14] MEDS ORDERED: ZINC OXIDE 28.35 GM TUBE TOP PRN (23:23)
[2016-11-15] MEDS: ACETAMINOPHEN/CODEINE TABLET PO PRN ×2 (01:12→06:34)
[2016-11-15] MEDS: SYNTHROID (DAW) 175MCG TABLET PO SCH (06:34)
[2016-11-15 06:53] LABS: HEMATOCRIT 38.7 % (42.0-52.0); HEMOGLOBIN 12.7 gm/dl (14.0-18.0); MEAN CELL VOLUME 79.3 fl (81-97); MEAN CORPUSCULAR HGB CONC 32.8 g/dl (32-36); MEAN PLATELET VOLUME 9.1 fl (7.4-10.4); PLATELET COUNT 172 K/uL (130-400); RED BLOOD COUNT 4.88 M/uL (4.40-5.70); RED CELL DISTRIBUTION WIDTH 14.4 % (11.5-14.5); WHITE BLOOD COUNT W/O DIFF 6.5 K/uL (4.2-12.2)
[2016-11-15 07:08] LABS: INR 3.28; PROTHROMBIN TIME (PATIENT) 37.1 SECONDS (9.5-12.1)
[2016-11-15 07:09] LABS: PLATELET ESTIMATE NORMAL (NORMAL)
[2016-11-15 07:13] LABS: ALB/GLOB RATIO 1.1 (1.1-1.8); ALBUMIN 3.1 gm/dL (3.5-5.0); ALKALINE PHOSPHATASE 80 U/L (38-126); ALT/SGPT 23 U/L (21-72); ANION GAP 6.9 (7-16); AST/SGOT 37 U/L (17-59); BLOOD UREA NITROGEN 7 mg/dL (9-20); CARBON DIOXIDE 23.1 mmol/L (22-30); CREATININE 0.6 mg/dL (0.66-1.25); EST GLOMERULAR FILTRATION RATE > 60 ml/min; GLUCOSE,RANDOM 88 mg/dL (70-110); TOTAL PROTEIN 5.9 gm/dL (6.3-8.2)
--- NOTE | 2016-11-15 07:41 | Discharge Summary ---
Providers Discharge Summary Date: 11/15/16 Date of admission: 11/13/16 12:03 Expected Date of Discharge: 11/15/16 Attending physician: BRE PARKER Primary care physician: DIA CAROLINA Physical Exam - Vital Signs Vital Signs: Vital Signs - Last 24 Hrs Temp Pulse Pulse Resp BP Pulse Ox 11/15/16 05:07 97.5 F L 60 16 154/84 97 11/15/16 01:14 97.4 F L 63 16 151/74 98 11/14/16 21:52 98.1 F 60 18 147/78 94 L 11/14/16 21:15 60 91 L 11/14/16 18:00 62 16 140/70 97 11/14/16 09:00 65 16 11/14/16 08:43 98.6 F 65 16 134/69 98 - General General Appearance: Alert, Oriented x3, Cooperative, No acute distress - Head Head exam: Normal inspection - Eye Eye exam: Normal appearance, PERRL Pupils: Normal accommodation - ENT ENT exam: Normal exam, Mucous membranes moist, Normal external ear exam, Normal orophraynx, TM's normal bilaterally Ear exam: Normal external inspection. negative: External canal tenderness Nasal Exam: Normal inspection. negative: Discharge, Sinus tenderness Mouth exam: Normal external inspection, Tongue normal Teeth exam: Normal inspection. negative: Dental caries Throat exam: Normal inspection. negative: Tonsillar erythema, Tonsillar exudate - Neck Neck exam: Normal inspection, Full ROM. negative: Tenderness - Respiratory Respiratory exam: Normal lung sounds bilaterally. negative: Respiratory distress - Cardiovascular Cardiovascular Exam: Regular rate, Normal rhythm, Normal heart sounds - GI/Abdominal GI/Abdominal exam: Soft, Normal bowel sounds. negative: Distended, Guarding, Hyperactive bowel sounds, Tenderness - exam: Deferred - Extremities Extremities exam: Normal inspection, Full ROM, Normal capillary refill. negative: Tenderness - Back Back exam: Reports: Normal inspection, Full ROM. Denies: Muscle spasm, Rash noted, Tenderness - Neurological Neurological exam: Alert, Normal gait, Oriented X3, Reflexes normal - Psychiatric Psychiatric exam: Normal affect, Normal mood - Skin Skin exam: Dry, Intact, Normal color, Warm Hospitalization - Hospitalization Admission Diagnosis: partial small bowel obstruction - Problem List/Discharge Diagnosis (1) Partial small bowel obstruction Current Visit: Yes Status: Acute Base Code: K56.69 - OTHER INTESTINAL OBSTRUCTION Comment: 11/15/16- continues to resolve. CT abdomen in ED with evidence of focal jejunum thickening causing obstruction. Patient had 7 bowel movements yesterday and one this morning. He has been tolerating full diet without any abdominal pain, nausea, distension. -Plan to discharge home today. Patient would like to call and schedule his appointment [facility] Dr. Carolina next week. May need GI referral. -will send over script for miralax to pharmacy. discussed avoiding constipation by maintaining adequate hydration, adequate fruit/vegetable intake, and use of miralax as needed. -discussed returning to ED at any time should he have return of abdominal pain, nausea or inability to pass stool or flatus. (2) Anticoagulated on Coumadin Current Visit: Yes Status: Acute Base Code: Z51.81 - ENCOUNTER FOR THERAPEUTIC DRUG LEVEL MONITORING; Z79.01 - SHELTER (CURRENT) USE OF ANTICOAGULANTS Comment: 11/15/16- therapeutic with INR of 3.3. discussed wt pharmacy. Likely elevated since he was npo for 2 days. Pharmacy recommends resuming his usual coumadin regimen since now tolerating full diet and have labs repeated prior to follow up appointment in 1 week. (3) DVT prophylaxis Current Visit: Yes Status: Acute Base Code: [id number] - Comment: 11/15/16- patient therapeutic on coumadin. INR 3.30 on 11/13 (4) Full code status Current Visit: Yes Status: Acute Base Code: Z78.9 - OTHER SPECIFIED HEALTH STATUS Comment: 11/15/16- patient was full code during his stay - Hospitalization Course Disposition: Home, Self-Care Hospital Course: 86yo male with CC of epigastric pain. 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 Patient began having epigastric abdominal pain about 10 days prior to ED presentation. It became more severe and felt similar to his previous episode of pancreatitis so came in to the ED. While in the ED, patient had improvement in his abdominal pain with morphine. His CBC, CMP were unremarkable. Urine showed trace amount of leukocyte esterase. Patient had CT abdomen that showed a focal loop of jejunum with thickening causing partial obstruction. Stable thoracic aortic aneurysms. Case was discussed with Dr. Garcia, on-call for surgery, with ED physician. He was admitted to [facility] for partial SBO. 11/14/16- Patient is feeling much better today. He had a large bowel movement this morning and has had almost complete resolution of his epigastric pain. He denies nausea, vomiting, black or bloody stools. Says prior to this BM he had not had one in 3 days which is fairly common for him. takes dulcolax on a daily basis for constipation. He had open heart surgery but no other abdominal surgeries. 11/15/16- Patient reports complete resolution of his abdominal pain. says he had 7 bowel movements yesterday and one today. He tolerated a full breakfast this morning without pain, nausea or distension. He follows with his primary care for coumadin management and will call to schedule a follow up appointment in the next week. Abnormal Labs: Abnormal Lab Results 11/14/16 11/14/16 11/15/16 Range/Units 06:20 06:20 06:30 Hgb 11.7 L 12.7 L (14.0-18.0) gm/dl Hct 37.5 L 38.7 L (42.0-52.0) % MCV 79.3 L (81-97) fl MCH 25.3 L 26.0 L (27-33) pg MCHC 31.2 L (32-36) g/dl Lymphocytes % 15.0 L (16-45) % Monocytes % 9.7 H 13.0 H (0-9) % Eosinophils % 6.1 H (0-6) % PT (9.5-12.1) SECONDS Chloride (98-107) mmol/L Anion Gap (7-16) BUN (9-20) mg/dL Creatinine (0.66-1.25) mg/dL Calcium 8.4 L (8.5-10.1) mg/dL Total Protein 5.7 L (6.3-8.2) gm/dL Albumin 3.0 L (3.5-5.0) gm/dL 11/15/16 11/15/16 Range/Units 06:30 06:30 Hgb (14.0-18.0) gm/dl Hct (42.0-52.0) % MCV (81-97) fl MCH (27-33) pg MCHC (32-36) g/dl Lymphocytes % (16-45) % Monocytes % (0-9) % Eosinophils % (0-6) % PT 37.1 H (9.5-12.1) SECONDS Chloride 109 H (98-107) mmol/L Anion Gap 6.9 L (7-16) BUN 7 L (9-20) mg/dL Creatinine 0.6 L (0.66-1.25) mg/dL Calcium (8.5-10.1) mg/dL Total Protein 5.9 L (6.3-8.2) gm/dL Albumin 3.1 L (3.5-5.0) gm/dL Condition at Discharge: (2) Stable Discharge Medications - Discharge Medications Prescriptions: Polyethylene Glycol 3350 [Miralax] 17 gm PO DAILY #30 packet Home Medications: Ambulatory Orders Carvedilol 25 mg PO BID 03/29/14 [Last Taken 11/08/15] Digoxin [Digox] 0.125 mg PO DAILY 03/29/14 [Last Taken 11/08/15] Warfarin Sodium 2.5 mg PO DAILY 03/29/14 [Last Taken 11/08/15] Ezetimibe [Zetia] 10 mg PO DAILY 07/11/14 [Last Taken 11/08/15] Epinephrine [Epipen 2-Pastor] 0.3 mg IJ NOW 07/25/15 [Last Taken 11/08/15] Potassium Gluconate 99 mg PO DAILY 07/25/15 [Last Taken 11/08/15] Saw [place] 450 mg PO BID 07/25/15 [Last Taken 11/08/15] Colon Health 1 tab PO DAILY 09/16/16 [Last Taken Unknown] Multivits-Minerals/FA/Lycopene [One Daily Men's Health Tablet] 1 each PO DAILY 09/16/16 [Last Taken Unknown] Ubidecarenone [Co Q-10] 100 mg PO DAILY 09/16/16 [Last Taken Unknown] Levothyroxine Sodium [Synthroid] 175 mcg PO DAILYTHY 11/13/16 [Last Taken Unknown] Polyethylene Glycol 3350 [Miralax] 17 gm PO DAILY #30 packet 11/15/16 [Last Taken Unknown] Discharge Plan - Discharge Instructions Activity at Discharge: Resume Usual Activities As Tolerated Diet at Discharge: Advance to Usual Diet Additional Instructions: Please call Dr. McElmurry to schedule follow up appointment in the next week Continue home coumadin dosing but have INR drawn prior to your follow up appointment with Dr. Carolina Avoid constipation by maintaining adequate water intake and using miralax 17gm daily as needed for constipation Return to ED at any time if you have return of abdominal pain, nausea/vomiting, or inability to pass stool or flatus
[2016-11-15] MEDS: CARVEDILOL 12.5 MG TABLET PO SCH (09:28)
[2016-11-15] MEDS: DIGOXIN 125 MCG TABLET PO SCH (09:28)
[2016-11-15] MEDS: POLYETHYLENE GLY 17 GM PACKET PO SCH (09:30)
[2016-11-15] MEDS: EZETIMIBE 10 MG TABLET PO SCH (09:31)
[2016-11-15] MEDS ORDERED: WARFARIN 2.5 MG TAB PO SCH (16:00)
== END 2016-11-15 11:05 | disposition home or self-care (01) | DRG 390 ==
LOC: ER 03:57 → MEDSURG 12:03
PROVIDERS: ADMIT Family Medicine; ATTEND Family Medicine
DX: K56.69 Other intestinal obstruction (principal); I10 Essential (primary) hypertension; I25.810 Atherosclerosis of coronary artery bypass graft(s) without angina pectoris; E03.9 Hypothyroidism, unspecified; Z51.81 Encounter for therapeutic drug level monitoring; Z95.810 Presence of automatic (implantable) cardiac defibrillator
CPT/HCPCS: 99285 ×2; 83690; 85025; 85610; 80076; 80048; 81001; 84443; 82272; 80162; 74177; 93005; 93010; Q9967; J2405; J2270; 80053; 85027; 94760; 94761; 99223; 99239; J7030

== ENCOUNTER 2016-11-18 11:05 | Emergency (ER) | payer MEDICARE, BC ==
--- NOTE | 2016-11-18 11:20 | Emergency Department Record ---
History of Present Illness - General Chief Complaint: Dizziness Stated Complaint: DIZZY Time Seen by Provider: 11/18/16 11:14 Source: Patient Mode of Arrival: Wheelchair Limitations: No limitations - History of Present Illness Initial Comments: 86 yo male presents from the medical floor where he was visiting his . He became lightheaded and felt like he could pass out. His blood pressure was noted to be low (<100 systolic) on the floor and he was brought to the ER for evaluation. On arrival he is now asymptomatic. The symptoms lasted several minutes. No headache, no syncope, no chest pain or shortness of breath. He reports a history of similar episodes on multiple occasions in the past. He has a pacemaker. MD Complaint: Lightheadedness, Near syncope Onset/Timin -: Minutes(s) Timing: Sudden onset Description: Lightheadedness History of Same: Yes Severity: Mild Improves With: Nothing Worsens With: Nothing - [place] Coma Scale Eye Response: (4) Open spontaneously Motor Response: (6) Obeys commands Verbal Response: (5) Oriented [place] Total: 15 - Related Data Home Medications Medication Instructions Recorded Confirmed Last Taken Carvedilol 25 mg PO BID 03/29/14 11/18/16 11/18/16 Digoxin [Digox] 0.125 mg PO DAILY 03/29/14 11/18/16 11/18/16 Warfarin Sodium 2.5 mg PO DAILY 03/29/14 11/18/16 11/18/16 Ezetimibe [Zetia] 10 mg PO DAILY 07/11/14 11/18/16 11/18/16 Epinephrine [Epipen 2-Pastor] 0.3 mg IJ NOW 07/25/15 11/18/16 11/08/15 Potassium Gluconate 99 mg PO DAILY 07/25/15 11/18/16 11/18/16 Saw [place] 450 mg PO BID 07/25/15 11/18/16 11/18/16 Colon Health 1 tab PO DAILY 09/16/16 11/18/16 11/18/16 Multivits-Minerals/FA/Lycopene 1 each PO DAILY 09/16/16 11/18/16 11/18/16 [One Daily Men's Health Tablet] Ubidecarenone [Co Q-10] 100 mg PO DAILY 09/16/16 11/18/16 11/18/16 Levothyroxine Sodium [Synthroid] 175 mcg PO DAILYTHY 11/13/16 11/18/16 11/18/16 Previous Rx's Medication Instructions Recorded Polyethylene Glycol 3350 [Miralax] 17 gm PO DAILY #30 packet 11/15/16 Allergies Allergy/AdvReac Type Severity Reaction Status Date / Time bee pollen [Bee Pollen] AdvReac Intermediate SWELLING Verified 11/13/16 04:02 OF THE FACE erythromycin lactobionate AdvReac Intermediate HIVES Verified 11/13/16 04:02 [From Erythrocin] Penicillins AdvReac Intermediate HIVES Verified 11/13/16 04:02 [id number]-[id number] Reductase AdvReac Intermediate BODY ACHES Verified 11/13/16 04: 02 Inhibitor Travel Screening - Travel/Exposure Within Last 30 Days Have you traveled within the last 30 days?: No - Travel/Exposure Within Last Year Have you traveled outside the [place] in the last year?: No - Additonal Travel Details Have you been exposed to anyone with a communicable illness?: No - Travel Symptoms Symptom Screening: None Review of Systems Constitutional: Denies: Chills, Fever, Malaise, Weakness Eyes: Denies: Eye discharge ENT: Denies: Congestion, Throat pain Respiratory: Denies: Cough, Dyspnea, Hemoptysis, Stridor, Wheezes Cardiovascular: Reports: Syncope (in the past). Denies: Chest pain, Palpitations Gastrointestinal: Denies: Abdominal pain, Diarrhea, Hematemesis, Hematochezia, Nausea, Vomiting Genitourinary: Denies: Dysuria, Frequency, Hematuria Musculoskeletal: Denies: Arthralgia, Back pain, Myalgia Skin: Denies: Bruising, Change in color, Rash Neurological: Denies: Abnormal gait, Confusion, Headache, Numbness, Paresthesias , Tingling, Tremors, Vertigo, Weakness Psychiatric: Denies: Anxiety Hematological/Lymphatic: 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) Hx Pancreatitis: Yes - Hx Genitourinary Disorders: No - ENDOCRINE Hx Endocrine Disorders: Yes Hx Diabetes: Yes ("borderline") Hx Thyroid Disease: Yes - MUSCULOSKELETAL Hx Musculoskeletal Disorders: Yes Hx Arthritis: Yes - PSYCH Hx Psych Problems: No - HEMATOLOGY/ONCOLOGY Hx Hematology/Oncology Disorders: Yes Hx Cancer: Yes (carcinoma face/hand/nose) Hx Blood Transfusions: Yes Hx Blood Transfusion Reaction: No Family Medical History Any Significant Family History?: No Hx Cancer: Children, Brother/Sister Hx Diabetes: Brother/Sister *Heart Comment: cousin Hx Kidney Disease: Brother/Sister Hx Stroke: Brother/Sister Physical Exam - General General Appearance: Alert, Oriented x3, Cooperative, No acute distress, Other ( Well appearing, alert, conversational) Limitations: No limitations - Head Head exam: Atraumatic, Normocephalic, Normal inspection - Eye Eye exam: Normal appearance, PERRL. negative: Conjunctival injection, Periorbital swelling - ENT ENT exam: Normal exam, Mucous membranes moist Ear exam: Normal external inspection Nasal Exam: Normal inspection Mouth exam: Normal external inspection Teeth exam: Normal inspection Throat exam: Normal inspection - Neck Neck exam: Normal inspection, Full ROM. negative: Tenderness - Respiratory Respiratory exam: Normal lung sounds bilaterally. negative: Decreased breath sounds, Prolonged expiratory, Respiratory distress - Cardiovascular Cardiovascular Exam: Regular rate, Normal rhythm, Normal heart sounds Peripheral Pulses: 2+: Radial (R), Radial (L) - GI/Abdominal GI/Abdominal exam: Soft. negative: Distended, Tenderness - Rectal Rectal exam: Deferred - exam: Deferred - Extremities Extremities exam: Normal inspection, Full ROM, Normal capillary refill. negative: Pedal edema, Tenderness - Back Back exam: Reports: Normal inspection, Full ROM. Denies: CVA tenderness (R), CVA tenderness (L), Muscle spasm, Paraspinal tenderness, Rash noted, Tenderness , Vertebral tenderness - Neurological Neurological exam: Alert, CN II-XII intact, Normal gait, Oriented X3. negative : Altered, Motor sensory deficit - Psychiatric Psychiatric exam: Normal affect, Normal mood - Skin Skin exam: Dry, Intact, Normal color, Warm. negative: Cyanosis, Diaphoretic, Erythema, Mottled Course Vital Signs 11/18/16 11:07 Temperature 97.4 F L Pulse Rate 60 Respiratory 16 Rate Blood Pressure 136/68 Pulse Ox 97 - Reevaluation(s) Reevaluation #1: EKG 11:06 Atrial paced with capture, no ectopy, no ST changes. No significant changes from prior 11/13/16 with morphology. prior afib 11/18/16 11:19 Reevaluation #2: DC summary from 11/15/16 reviewed for SBO (Roge) Holter report from 09/14/16 reviewed. NSR with A and V pacing with some afib. ( Sulaiman) 11/18/16 11:22 Reevaluation #3: The labs were reviewed No significant acute changes from his baseline He remains asymptomatic. Paced rhythm on the monitor. 11/18/16 12:22 Reevaluation #4: Orthostatics reviewed No hypotension. 11/18/16 12:44 Medical Decision Making - Lab Data Result diagrams: 11/18/16 12:01 11/18/16 12:01 Disposition Disposition: Discharge Clinical Impression: Near syncope Disposition: Home, Self-Care Condition: (1) Good Instructions: Syncope (ED) Additional Instructions: Return to the ER if your symptoms return Make sure you are patient and slow with standing and changes in position Call your doctor on Sunday to discuss your medications as these can effect blood pressure. Forms: Patient Portal Access Time of Disposition: 12:25
[2016-11-18 12:02] LABS: BASO % 0.3 % (0-6); EOS % 5.8 % (0-6); GRAN % 68.5 % (47-80); HEMATOCRIT 37.5 % (42.0-52.0); HEMOGLOBIN 11.9 gm/dl (14.0-18.0); LYMPH % 13.9 % (16-45); MEAN CELL VOLUME 80.8 fl (81-97); MEAN CORPUSCULAR HEMOGLOBIN 25.6 pg (27-33); MEAN CORPUSCULAR HGB CONC 31.7 g/dl (32-36); MEAN PLATELET VOLUME 9.2 fl (7.4-10.4); MONO % 11.5 % (0-9); PLATELET COUNT 204 K/uL (130-400); RED BLOOD COUNT 4.64 M/uL (4.40-5.70); RED CELL DISTRIBUTION WIDTH 14.8 % (11.5-14.5); WHITE BLOOD COUNT W/O DIFF 6.9 K/uL (4.2-12.2)
[2016-11-18 12:15] LABS: ALB/GLOB RATIO 1.1 (1.1-1.8); ALBUMIN 3.4 gm/dL (3.5-5.0); ALKALINE PHOSPHATASE 91 U/L (38-126); ALT/SGPT 31 U/L (21-72); ANION GAP 5.3 (7-16); AST/SGOT 21 U/L (17-59); BILIRUBIN,TOTAL 0.49 mg/dL (0.2-1.3); BLOOD UREA NITROGEN 8 mg/dL (9-20); CARBON DIOXIDE 30.7 mmol/L (22-30); CREATININE 0.7 mg/dL (0.66-1.25); EST GLOMERULAR FILTRATION RATE > 60 ml/min; GLUCOSE,RANDOM 129 mg/dL (70-110); TOTAL PROTEIN 6.4 gm/dL (6.3-8.2)
[2016-11-18 12:16] LABS: INR 1.78; PARTIAL THROMBOPLASTIN TIME 37.5 SECONDS (24.5-39.1); PROTHROMBIN TIME (PATIENT) 20.1 SECONDS (9.5-12.1)
== END 2016-11-18 13:08 | disposition home or self-care (01) ==
LOC: ER 11:05
DX: R55 Syncope and collapse (principal); I10 Essential (primary) hypertension; I25.2 Old myocardial infarction; I48.91 Unspecified atrial fibrillation; Z79.01 Long term (current) use of anticoagulants; Z87.891 Personal history of nicotine dependence
CPT/HCPCS: 80053; 85025; 85610; 85730; 93005; 93010; 99284

== ENCOUNTER 2017-04-16 21:46 | Emergency (ER) | payer MEDICARE, BC ==
[2017-04-16 22:49] LABS: BASO % 0.6 % (0-6); EOS % 7.4 % (0-6); GRAN % 56.7 % (47-80); HEMOGLOBIN 13.1 gm/dl (14.0-18.0); LYMPH % 24.7 % (16-45); MEAN CELL VOLUME 78.1 fl (81-97); MEAN CORPUSCULAR HEMOGLOBIN 24.9 pg (27-33); MEAN PLATELET VOLUME 9.6 fl (7.4-10.4); MONO % 10.6 % (0-9); PLATELET COUNT 215 K/uL (130-400); RED BLOOD COUNT 5.25 M/uL (4.40-5.70); RED CELL DISTRIBUTION WIDTH 15.8 % (11.5-14.5); WHITE BLOOD COUNT W/O DIFF 8.2 K/uL (4.2-12.2)
[2017-04-16 23:00] LABS: ANION GAP 8.9 (7-16); BLOOD UREA NITROGEN 17 mg/dL (9-20); CARBON DIOXIDE 26.1 mmol/L (22-30); CREATINE PHOSPHOKINASE 98 U/L (55-170); EST GLOMERULAR FILTRATION RATE > 60 ml/min; GLUCOSE,RANDOM 125 mg/dL (70-110)
[2017-04-16 23:01] LABS: INR 2.11; PARTIAL THROMBOPLASTIN TIME 39.2 SECONDS (24.5-39.1)
[2017-04-16 23:12] LABS: CKMB 2.2 ug/L (0-6)
[2017-04-16 23:15] LABS: TROPONIN I < 0.012 ng/mL (0.00-0.034)
[2017-04-16 23:31] LABS: THYROID STIMULATING HORMONE 6.79 uIU/ml (0.465-4.68)
[2017-04-17 00:39] LABS: T3 UPTAKE 38.9 % (23.5-40.5); THYROXINE (T4) 8.07 ug/dl (5.53-11.0)
--- NOTE | 2017-04-17 00:44 | Emergency Department Record ---
History of Present Illness - General Chief Complaint: Arrythmia/Palpitations Stated Complaint: LOW BP,HEART RACING Time Seen by Provider: 04/16/17 22:34 Source: Patient Mode of Arrival: Ambulatory Limitations: No limitations - History of Present Illness Initial Comments: pt states that he had a fast heartrate and low bp and felt lightheaded at home. he felt better when he got here. Complaint: Palpitations, Rapid heart beat Onset/Timin -: Minutes(s) Context: Occurred during rest Arrythmia History: On anti-coagulants, Pacemaker, Other Associated Symptoms: Denies other symptoms - Related Data Allergies Allergy/AdvReac Type Severity Reaction Status Date / Time bee pollen [Bee Pollen] AdvReac Intermediate SWELLING Verified 11/13/16 04:02 OF THE FACE erythromycin lactobionate AdvReac Intermediate HIVES Verified 11/13/16 04:02 [From Erythrocin] Penicillins AdvReac Intermediate HIVES Verified 11/13/16 04:02 [place]-Rnz-Kbz Reductase AdvReac Intermediate BODY ACHES Verified 11/13/16 04: 02 Inhibitor Travel Screening - Travel/Exposure Within Last 30 Days Have you traveled within the last 30 days?: No - Travel Symptoms Symptom Screening: None Review of Systems Reviewed: No additional complaints except as noted below Constitutional: Reports: As per HPI. Denies: Chills, Fever, Malaise, Night sweats, Weakness, Weight change Eyes: Reports: As per HPI. Denies: Eye discharge, Eye pain, Photophobia, Vision change ENT: Reports: As per HPI. Denies: Congestion, Dental pain, Ear pain, Epistaxis , Hearing loss, Throat pain Respiratory: Reports: As per HPI. Denies: Cough, Dyspnea, Hemoptysis, Stridor, Wheezes Cardiovascular: Reports: As per HPI. Denies: Arrhythmia, Chest pain, Dyspnea on exertion, Edema, Murmurs, Orthopnea, Palpitations, Paroxysmal nocturnal dyspnea, Rheumatic Fever, Syncope Endocrine: Reports: As per HPI. Denies: Fatigue, Heat or cold intolerance, Polydipsia, Polyuria Gastrointestinal: Reports: As per HPI. Denies: Abdominal pain, Constipation, Diarrhea, Hematemesis, Hematochezia, Melena, Nausea, Vomiting Genitourinary: Reports: As per HPI. Denies: Dysuria, Frequency, Hematuria, Incontinence, Retention, Testicular pain, Testicular mass, Urgency Musculoskeletal: Reports: As per HPI. Denies: Arthralgia, Back pain, Gout, Joint swelling, Myalgia, Neck pain Skin: Reports: As per HPI. Denies: Bruising, Change in color, Change in hair/ nails, Lesions, Pruritus, Rash Neurological: Reports: As per HPI. Denies: Abnormal gait, Confusion, Headache, Numbness, Paresthesias, Seizure, Tingling, Tremors, Vertigo, Weakness Psychiatric: Reports: As per HPI. Denies: Anxiety, Auditory hallucinations, Depression, Homicidal thoughts, Suicidal thoughts, Visual hallucinations Hematological/Lymphatic: Reports: As per HPI. 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) Hx Pancreatitis: Yes - Hx Genitourinary Disorders: No - ENDOCRINE Hx Endocrine Disorders: Yes Hx Diabetes: Yes ("borderline") Hx Thyroid Disease: Yes - MUSCULOSKELETAL Hx Musculoskeletal Disorders: Yes Hx Arthritis: Yes - PSYCH Hx Psych Problems: No - HEMATOLOGY/ONCOLOGY Hx Hematology/Oncology Disorders: Yes Hx Cancer: Yes (carcinoma face/hand/nose) Hx Blood Transfusions: Yes Hx Blood Transfusion Reaction: No Family Medical History Any Significant Family History?: Yes Hx Cancer: Children, Brother/Sister Hx Diabetes: Brother/Sister *Heart Comment: cousin Hx Kidney Disease: Brother/Sister Hx Stroke: Brother/Sister Physical Exam - General General Appearance: Alert, Oriented x3, Cooperative, Mild distress - Head Head exam: Normal inspection - Eye Eye exam: Normal appearance, PERRL, EOMI Pupils: Normal accommodation - ENT ENT exam: Normal exam, Mucous membranes moist, Normal external ear exam, Normal orophraynx Ear exam: Normal external inspection. negative: External canal tenderness Nasal Exam: Normal inspection. negative: Discharge, Sinus tenderness Mouth exam: Normal external inspection, Tongue normal Teeth exam: Normal inspection. negative: Dental caries Throat exam: Normal inspection. negative: Tonsillar erythema, Tonsillar exudate - Neck Neck exam: Normal inspection, Full ROM. negative: Tenderness - Respiratory Respiratory exam: Normal lung sounds bilaterally. negative: Respiratory distress - Cardiovascular Cardiovascular Exam: Regular rate, Normal rhythm, Normal heart sounds - GI/Abdominal GI/Abdominal exam: Soft, Normal bowel sounds. negative: Tenderness - Rectal Rectal exam: Deferred - exam: Deferred - Extremities Extremities exam: Normal inspection, Full ROM, Normal capillary refill. negative: Tenderness - Back Back exam: Reports: Normal inspection, Full ROM. Denies: Muscle spasm, Rash noted, Tenderness - Neurological Neurological exam: Alert, CN II-XII intact, Normal gait, Oriented X3 - Psychiatric Psychiatric exam: Normal affect, Normal mood - Skin Skin exam: Dry, Intact, Normal color, Warm Course Vital Signs 04/16/17 04/16/17 04/16/17 21:54 23:07 23:55 Temperature 97.5 F L Pulse Rate [ 60 59 L Emr Analyst ] Pulse Rate [ 50 L Pulse Ox Probe] Respiratory 16 14 14 Rate Blood Pressure 103/69 92/60 102/64 [Right Arm] Pulse Ox 97 95 98 Medical Decision Making - Lab Data Result diagrams: 04/16/17 22:15 04/16/17 22:15 Lab Results 04/16/17 04/16/17 04/16/17 Range/Units 22:15 22:15 22:15 WBC 8.2 (4.2-12.2) K/uL RBC 5.25 (4.40-5.70) M/uL Hgb 13.1 L (14.0-18.0) gm/dl Hct 41.0 L (42.0-52.0) % MCV 78.1 L (81-97) fl MCH 24.9 L (27-33) pg MCHC 32.0 (32-36) g/dl RDW 15.8 H (11.5-14.5) % Plt Count 215 (130-400) K/uL MPV 9.6 (7.4-10.4) fl Gran % 56.7 (47-80) % Lymphocytes % 24.7 (16-45) % Monocytes % 10.6 H (0-9) % Eosinophils % 7.4 H (0-6) % Basophils % 0.6 (0-6) % PT 23.0 H (9.5-12.1) SECONDS INR 2.11 APTT 39.20 H (24.5-39.1) SECONDS Sodium 140 (136-145) mmol/L Potassium 4.2 (3.5-5.1) mmol/L Chloride 105 (98-107) mmol/L Carbon Dioxide 26.1 (22-30) mmol/L Anion Gap 8.9 (7-16) BUN 17 (9-20) mg/dL Creatinine 1.0 (0.66-1.25) mg/dL Estimated GFR > 60 ml/min Random Glucose 125 H (70-110) mg/dL Calcium 9.4 (8.5-10.1) mg/dL Creatine Kinase 98 (55-170) U/L CK-MB (CK-2) 2.2 (0-6) ug/L Troponin I < 0.012 (0.00-0.034) ng/mL TSH 6.79 H (0.465-4.68) uIU/ml Digoxin (0.9-2.0) ng/mL 04/16/17 Range/Units 22:15 WBC (4.2-12.2) K/uL RBC (4.40-5.70) M/uL Hgb (14.0-18.0) gm/dl Hct (42.0-52.0) % MCV (81-97) fl MCH (27-33) pg MCHC (32-36) g/dl RDW (11.5-14.5) % Plt Count (130-400) K/uL MPV (7.4-10.4) fl Gran % (47-80) % Lymphocytes % (16-45) % Monocytes % (0-9) % Eosinophils % (0-6) % Basophils % (0-6) % PT (9.5-12.1) SECONDS INR APTT (24.5-39.1) SECONDS Sodium (136-145) mmol/L Potassium (3.5-5.1) mmol/L Chloride (98-107) mmol/L Carbon Dioxide (22-30) mmol/L Anion Gap (7-16) BUN (9-20) mg/dL Creatinine (0.66-1.25) mg/dL Estimated GFR ml/min Random Glucose (70-110) mg/dL Calcium (8.5-10.1) mg/dL Creatine Kinase (55-170) U/L CK-MB (CK-2) (0-6) ug/L Troponin I (0.00-0.034) ng/mL TSH (0.465-4.68) uIU/ml Digoxin 1.70 (0.9-2.0) ng/mL Disposition Disposition: Discharge Clinical Impression: Palpitations, Anticoagulated on Coumadin Disposition: Home, Self-Care Condition: (1) Good Instructions: Heart Palpitations (ED) Additional Instructions: follow up with family doctor today. return sooner if worse. Quality - Quality Measures Quality Measures: N/A - Blood Pressure Screening Does Patient Have Any of the Following: No Blood Pressure Classification: Normal BP Reading Systolic Measurement: 102 Diastolic Measurement: 64 Screening for High Blood Pressure: < Normal BP, F/U Not Required > [G6552]
== END 2017-04-17 01:06 | disposition home or self-care (01) ==
LOC: ER 21:46
DX: R00.2 Palpitations (principal); R42 Dizziness and giddiness; I10 Essential (primary) hypertension; I25.2 Old myocardial infarction; Z95.0 Presence of cardiac pacemaker; Z79.01 Long term (current) use of anticoagulants
CPT/HCPCS: 80048; 80162; 82550; 82553; 84436; 84443; 84479; 84484; 85025; 85610; 85730; 93005; 93010; 99284

== ENCOUNTER 2017-11-09 21:22 | Emergency (ER) | payer MEDICARE, BC ==
[2017-11-09 21:54] LABS: BASO % 0.5 % (0-6); EOS % 8.9 % (0-6); GRAN % 58.3 % (47-80); HEMATOCRIT 40.8 % (42.0-52.0); HEMOGLOBIN 13.3 gm/dl (14.0-18.0); LYMPH % 21.8 % (16-45); MEAN CELL VOLUME 82.6 fl (81-97); MEAN CORPUSCULAR HEMOGLOBIN 26.9 pg (27-33); MEAN CORPUSCULAR HGB CONC 32.6 g/dl (32-36); MEAN PLATELET VOLUME 10.2 fl (7.4-10.4); MONO % 10.5 % (0-9); PLATELET COUNT 214 K/uL (130-400); RED BLOOD COUNT 4.94 M/uL (4.40-5.70)
[2017-11-09] MEDS ORDERED: 0.9 % SODIUM CHLORIDE 1,000 ML BAG IV ONE (22:31)
[2017-11-09 22:34] LABS: INR 1.8; PARTIAL THROMBOPLASTIN TIME 33.6 SECONDS (24.5-39.1); PROTHROMBIN TIME (PATIENT) 19.9 SECONDS (9.5-12.1)
[2017-11-09 22:37] LABS: BLOOD UREA NITROGEN 15 mg/dL (8-23); CREATININE 0.8 mg/dL (0.7-1.2); EST GLOMERULAR FILTRATION RATE > 60 mL/min
[2017-11-09 22:40] LABS: GLUCOSE,RANDOM 134 mg/dL (74-109)
[2017-11-09 22:43] LABS: CREATINE PHOSPHOKINASE 112 U/L (39-308); DIGOXIN 0.7 ng/mL (0.8-2.0)
[2017-11-09 22:45] LABS: CKMB 3.9 ng/mL (<6.73)
[2017-11-09] MEDS ORDERED: ASPIRIN 81 MG CHEWABLE TABLET PO ONE (23:11)
--- NOTE | 2017-11-09 23:13 | Emergency Department Record ---
History of Present Illness - General Chief Complaint: Chest Pain Stated Complaint: CHEST PAINS Time Seen by Provider: 11/09/17 21:24 Source: Patient Mode of Arrival: Wheelchair Limitations: No limitations - History of Present Illness Initial Comments: pt had chest pain and felt like he was in afib at home an hour [employer]. pain has eased up but he feels he is still in afib. he felt his heart was racing MD Complaint: Chest pain Onset/Timin -: Hour(s) Onset: During rest Pain Radiation: None Severity: Moderate Consistency: Getting worse Improves With: Nitroglycerin Treatments Prior to Arrival: Nitroglycerin - Related Data Home Medications Medication Instructions Recorded Confirmed Last Taken Irbesartan [Avapro] 75 mg PO DAILY 11/09/17 11/09/17 Unknown Polyethylene Glycol 3350 1 pkt PO DAILY 11/09/17 11/09/17 Unknown [Polyethylene Glycol 3350] Warfarin Sodium [Coumadin] 2.5 mg PO DAILY 11/09/17 11/09/17 Unknown Allergies Allergy/AdvReac Type Severity Reaction Status Date / Time bee pollen [Bee Pollen] AdvReac Intermediate SWELLING Verified 11/13/16 04:02 OF THE FACE erythromycin lactobionate AdvReac Intermediate HIVES Verified 11/13/16 04:02 [From Erythrocin] Penicillins AdvReac Intermediate HIVES Verified 11/13/16 04:02 Wchhiog-Bmj-Tku Reductase AdvReac Intermediate BODY ACHES Verified 11/13/16 04: 02 Inhibitor Travel Screening - Travel/Exposure Within Last 30 Days Have you traveled within the last 30 days?: No - Travel/Exposure Within Last Year Have you traveled outside the [place] in the last year?: No - Additonal Travel Details Have you been exposed to anyone with a communicable illness?: No - Travel Symptoms Symptom Screening: None Review of Systems Reviewed: No additional complaints except as noted below Constitutional: Reports: As per HPI. Denies: Chills, Fever, Malaise, Night sweats, Weakness, Weight change Eyes: Reports: As per HPI. Denies: Eye discharge, Eye pain, Photophobia, Vision change ENT: Reports: As per HPI. Denies: Congestion, Dental pain, Ear pain, Epistaxis , Hearing loss, Throat pain Respiratory: Reports: As per HPI. Denies: Cough, Dyspnea, Hemoptysis, Stridor, Wheezes Cardiovascular: Reports: As per HPI, Chest pain, Palpitations. Denies: Arrhythmia, Dyspnea on exertion, Edema, Murmurs, Orthopnea, Paroxysmal nocturnal dyspnea, Rheumatic Fever, Syncope Endocrine: Reports: As per HPI. Denies: Fatigue, Heat or cold intolerance, Polydipsia, Polyuria Gastrointestinal: Reports: As per HPI. Denies: Abdominal pain, Constipation, Diarrhea, Hematemesis, Hematochezia, Melena, Nausea, Vomiting Genitourinary: Reports: As per HPI. Denies: Dysuria, Frequency, Hematuria, Incontinence, Retention, Testicular pain, Testicular mass, Urgency Musculoskeletal: Reports: As per HPI. Denies: Arthralgia, Back pain, Gout, Joint swelling, Myalgia, Neck pain Skin: Reports: As per HPI. Denies: Bruising, Change in color, Change in hair/ nails, Lesions, Pruritus, Rash Neurological: Reports: As per HPI. Denies: Abnormal gait, Confusion, Headache, Numbness, Paresthesias, Seizure, Tingling, Tremors, Vertigo, Weakness Psychiatric: Reports: As per HPI. Denies: Anxiety, Auditory hallucinations, Depression, Homicidal thoughts, Suicidal thoughts, Visual hallucinations Hematological/Lymphatic: Reports: As per HPI. 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 Family Medical History Any Significant Family History?: No Hx Cancer: Children, Brother/Sister Hx Diabetes: Brother/Sister *Heart Comment: cousin Hx Kidney Disease: Brother/Sister Hx Stroke: Brother/Sister Physical Exam - General General Appearance: Alert, Oriented x3, Cooperative, Mild distress - Head Head exam: Normal inspection - Eye Eye exam: Normal appearance, PERRL, EOMI Pupils: Normal accommodation - ENT ENT exam: Normal exam, Mucous membranes moist, Normal external ear exam, Normal orophraynx Ear exam: Normal external inspection. negative: External canal tenderness Nasal Exam: Normal inspection. negative: Discharge, Sinus tenderness Mouth exam: Normal external inspection, Tongue normal Teeth exam: Normal inspection. negative: Dental caries Throat exam: Normal inspection. negative: Tonsillar erythema, Tonsillar exudate - Neck Neck exam: Normal inspection, Full ROM. negative: Tenderness - Respiratory Respiratory exam: Normal lung sounds bilaterally. negative: Respiratory distress - Cardiovascular Cardiovascular Exam: Normal heart sounds, Irregular rhythm - GI/Abdominal GI/Abdominal exam: Soft, Normal bowel sounds. negative: Tenderness - Rectal Rectal exam: Deferred - exam: Deferred - Extremities Extremities exam: Normal inspection, Full ROM, Normal capillary refill. negative: Tenderness - Back Back exam: Reports: Normal inspection, Full ROM. Denies: Muscle spasm, Rash noted, Tenderness - Neurological Neurological exam: Alert, CN II-XII intact, Normal gait, Oriented X3 - Psychiatric Psychiatric exam: Normal affect, Normal mood - Skin Skin exam: Dry, Intact, Normal color, Warm Course Vital Signs 11/09/17 11/09/17 11/09/17 21:24 22:28 22:54 Temperature 97.6 F Pulse Rate 105 H Pulse Rate [ 70 75 [employer] ] Respiratory 20 20 20 Rate Blood Pressure 142/89 Blood Pressure 99/70 [Left Arm] Blood Pressure 94/58 80/59 [Right Arm] Pulse Ox 98 96 94 L 11/09/17 23:05 Temperature Pulse Rate Pulse Rate [ 71 [employer] ] Respiratory 20 Rate Blood Pressure Blood Pressure [Left Arm] Blood Pressure 97/64 [Right Arm] Pulse Ox 96 - Reevaluation(s) Reevaluation #1: 11/09/17 23:23 pts pain is better. pt felt lightheaded and bp was 80/ which responded to fluid bolus Medical Decision Making - Lab Data Result diagrams: 11/09/17 21:45 11/09/17 21:45 Lab Results 11/09/17 11/09/17 11/09/17 Range/Units 21:45 21:45 21:45 WBC 8.0 (4.2-12.2) K/uL RBC 4.94 (4.40-5.70) M/uL Hgb 13.3 L (14.0-18.0) gm/dl Hct 40.8 L (42.0-52.0) % MCV 82.6 (81-97) fl MCH 26.9 L (27-33) pg MCHC 32.6 (32-36) g/dl RDW 15.0 H (11.5-14.5) % Plt Count 214 (130-400) K/uL MPV 10.2 (7.4-10.4) fl Gran % 58.3 (47-80) % Lymphocytes % 21.8 (16-45) % Monocytes % 10.5 H (0-9) % Eosinophils % 8.9 H (0-6) % Basophils % 0.5 (0-6) % PT 19.9 H (9.5-12.1) SECONDS INR 1.8 APTT 33.6 (24.5-39.1) SECONDS Sodium 136 (136-145) mmol/L Potassium 4.1 (3.4-4.5) mmol/L Chloride 101 (98-107) mmol/L Carbon Dioxide 26.0 (22-29) mmol/L Anion Gap 9.0 (7-16) BUN 15 (8-23) mg/dL Creatinine 0.8 (0.7-1.2) mg/dL Estimated GFR > 60 mL/min Random Glucose 134 H (74-109) mg/dL Calcium 9.0 (8.8-10.2) mg/dL Creatine Kinase 112 (39-308) U/L CK-MB (CK-2) 3.9 (<6.73) ng/mL Troponin T < 0.010 (0-0.010) ng/mL Digoxin 0.7 L (0.8-2.0) ng/mL Disposition Disposition: Transfer Clinical Impression: Chest pain Qualifiers: Chest pain type: chest pain due to myocardial ischemia Ischemic chest pain type : unstable angina pectoris Qualified Code(s): I20.0 - Unstable angina A-fib Qualifiers: Atrial fibrillation type: unspecified Qualified Code(s): I48.91 - Unspecified atrial fibrillation Disposition: Acute Care Hospital Transfer Transfer To: [facility] Reason For Transfer: needs telephone ad taker Accepting Physician: dr castillo Time Discussed w/Accepting Physician: 23:24 Forms: Patient Portal Access Quality - Quality Measures Quality Measures: N/A - Blood Pressure Screening Does Patient Have Any of the Following: No Blood Pressure Classification: Pre-Hypertensive BP Reading Systolic Measurement: 142 Diastolic Measurement: 89 Screening for High Blood Pressure: < Pre-Hypertensive BP, F/U Documented > [ G8950] Pre-Hypertensive Follow-up Interventions: Follow-up with rescreen every year.
--- NOTE | 2017-11-10 13:31 | RADIOLOGY REPORT ---
EXAM: CHEST 2 VIEWS HISTORY: DIFFICULTY IN BREATHING. TECHNIQUE: Frontal and lateral views of the chest were performed. COMPARISON: 04/13/2017. FINDINGS: There is a left-sided pacing device in place. There is elevation of the right hemidiaphragm. There is severe underlying emphysema. No definitive infiltrate or pleural effusion. IMPRESSION: SEVERE UNDERLYING EMPHYSEMA. ELEVATION OF THE RIGHT HEMIDIAPHRAGM. NO DEFINITIVE INFILTRATE OR PLEURAL EFFUSION. JOB NUMBER: [id number] MTDD
== END 2017-11-09 23:53 | disposition short-term general hospital (02) ==
LOC: ER 21:22
DX: I20.0 Unstable angina (principal); I48.91 Unspecified atrial fibrillation; I10 Essential (primary) hypertension; I25.2 Old myocardial infarction; Z79.01 Long term (current) use of anticoagulants; Z87.891 Personal history of nicotine dependence
CPT/HCPCS: 71046; 80048; 80162; 82550; 82553; 84484; 85025; 85610; 85730; 93005; 93010; 99285; J7030

== ENCOUNTER 2019-05-04 11:12 | Emergency (ER) | payer MEDICARE, BC ==
[2019-05-04 12:17] LABS: ABSOLUTE NEUTROPHIL COUNT 9.34; BASO % 0.3 % (0-6); EOS % 3.7 % (0-6); GRAN % 79.5 % (47-80); HEMATOCRIT 38.3 % (42.0-52.0); HEMOGLOBIN 12.5 gm/dl (14.0-18.0); LYMPH % 8.4 % (16-45); MEAN CELL VOLUME 78.3 fl (81-97); MEAN CORPUSCULAR HGB CONC 32.6 g/dl (32-36); MEAN PLATELET VOLUME 9.3 fl (7.4-10.4); MONO % 8.1 % (0-9); PLATELET COUNT 198 K/uL (130-400); RED BLOOD COUNT 4.89 M/uL (4.40-5.70); RED CELL DISTRIBUTION WIDTH 19.5 % (11.5-14.5); WHITE BLOOD COUNT W/O DIFF 11.7 K/uL (4.2-12.2)
[2019-05-04 12:20] LABS: MEAN CORPUSCULAR HEMOGLOBIN 25.5 pg (27-33)
[2019-05-04 12:28] LABS: BLOOD UREA NITROGEN 20 mg/dL (8-23); CREATININE 0.9 mg/dL (0.7-1.2); EST GLOMERULAR FILTRATION RATE > 60 mL/min
[2019-05-04 12:31] LABS: GLUCOSE,RANDOM 118 mg/dL (74-109)
--- NOTE | 2019-05-04 13:54 | Emergency Department Record ---
History of Present Illness - General Chief Complaint: Abdominal Pain Stated Complaint: CONSTIPATION Time Seen by Provider: 05/04/19 11:38 Source: Patient Mode of Arrival: Ambulatory Limitations: No limitations - History of Present Illness Initial Comments: pt c/o constipation. he states he has not had a bm in 4 days despite using miralax and dulcolax. he also c/o ap MD Complaint: Abdominal pain Onset/Timin -: Days(s) Location: LLQ, RLQ Severity: Mild Severity scale (1-10): 4 Quality: Cramping Improves With: Nothing Worsens With: Nothing Associated Symptoms: Denies other symptoms - Related Data Allergies Allergy/AdvReac Type Severity Reaction Status Date / Time bee pollen [Bee Pollen] AdvReac Intermediate SWELLING Verified 05/04/19 11:21 OF THE FACE erythromycin lactobionate AdvReac Intermediate HIVES Verified 05/04/19 11:21 [From Erythrocin] Penicillins AdvReac Intermediate HIVES Verified 05/04/19 11:21 Paherzo-Aaq-Rrp Reductase AdvReac Intermediate BODY ACHES Verified 05/04/19 11:21 Inhibitor Travel Screening - Travel/Exposure Within Last 30 Days Have you traveled within the last 30 days?: No Review of Systems Reviewed: No additional complaints except as noted below Constitutional: Reports: As per HPI. Denies: Chills, Fever, Malaise, Night sweats, Weakness, Weight change Eyes: Reports: As per HPI. Denies: Eye discharge, Eye pain, Photophobia, Vision change ENT: Reports: As per HPI. Denies: Congestion, Dental pain, Ear pain, Epistaxis, Hearing loss, Throat pain Respiratory: Reports: As per HPI. Denies: Cough, Dyspnea, Hemoptysis, Stridor, Wheezes Cardiovascular: Reports: As per HPI. Denies: Arrhythmia, Chest pain, Dyspnea on exertion, Edema, Murmurs, Orthopnea, Palpitations, Paroxysmal nocturnal dyspnea, Rheumatic Fever, Syncope Endocrine: Reports: As per HPI. Denies: Fatigue, Heat or cold intolerance, Polydipsia, Polyuria Gastrointestinal: Reports: As per HPI, Abdominal pain, Constipation. Denies: Diarrhea, Hematemesis, Hematochezia, Melena, Nausea, Vomiting Genitourinary: Reports: As per HPI. Denies: Dysuria, Frequency, Hematuria, Incontinence, Retention, Testicular pain, Testicular mass, Urgency Musculoskeletal: Reports: As per HPI. Denies: Arthralgia, Back pain, Gout, Joint swelling, Myalgia, Neck pain Skin: Reports: As per HPI. Denies: Bruising, Change in color, Change in hair/nails, Lesions, Pruritus, Rash Neurological: Reports: As per HPI. Denies: Abnormal gait, Confusion, Headache, Numbness, Paresthesias, Seizure, Tingling, Tremors, Vertigo, Weakness Psychiatric: Reports: As per HPI. Denies: Anxiety, Auditory hallucinations, Depression, Homicidal thoughts, Suicidal thoughts, Visual hallucinations Hematological/Lymphatic: Reports: As per HPI. 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 Family Medical History Any Significant Family History?: Yes Hx Cancer: Children, Brother/Sister Hx Diabetes: Brother/Sister *Heart Comment: cousin Hx Kidney Disease: Brother/Sister Hx Stroke: Brother/Sister Physical Exam - General General Appearance: Alert, Oriented x3, Cooperative, Mild distress - Head Head exam: Normal inspection - Eye Eye exam: Normal appearance, PERRL, EOMI Pupils: Normal accommodation - ENT ENT exam: Normal exam, Mucous membranes moist, Normal external ear exam, Normal orophraynx Ear exam: Normal external inspection. negative: External canal tenderness Nasal Exam: Normal inspection. negative: Discharge, Sinus tenderness Mouth exam: Normal external inspection, Tongue normal Teeth exam: Normal inspection. negative: Dental caries Throat exam: Normal inspection. negative: Tonsillar erythema, Tonsillar exudate - Neck Neck exam: Normal inspection, Full ROM. negative: Tenderness - Respiratory Respiratory exam: Normal lung sounds bilaterally. negative: Respiratory distress - Cardiovascular Cardiovascular Exam: Regular rate, Normal rhythm, Normal heart sounds - GI/Abdominal GI/Abdominal exam: Soft, Normal bowel sounds, Tenderness - Rectal Rectal exam: Deferred - exam: Deferred - Extremities Extremities exam: Normal inspection, Full ROM, Normal capillary refill. negative: Tenderness - Back Back exam: Reports: Normal inspection, Full ROM. Denies: Muscle spasm, Rash noted, Tenderness - Neurological Neurological exam: Alert, CN II-XII intact, Normal gait, Oriented X3 - Psychiatric Psychiatric exam: Normal affect, Normal mood - Skin Skin exam: Dry, Intact, Normal color, Warm Course Vital Signs 05/04/19 11:33 Temperature 97.9 F Pulse Rate 60 Respiratory 20 Rate Blood Pressure 183/94 Pulse Ox 96 - Reevaluation(s) Reevaluation #1: 05/04/19 13:[address] shows increase of aaa to 4.95. dr delaney informed. pt had a large bm while in dept Medical Decision Making - Lab Data Result diagrams: 05/04/19 12:05 05/04/19 12:05 Lab Results 05/04/19 05/04/19 Range/Units 12:05 12:05 WBC 11.7 (4.2-12.2) K/uL RBC 4.89 (4.40-5.70) M/uL Hgb 12.5 L (14.0-18.0) gm/dl Hct 38.3 L (42.0-52.0) % MCV 78.3 L (81-97) fl MCH 25.5 L (27-33) pg MCHC 32.6 (32-36) g/dl RDW 19.5 H (11.5-14.5) % Plt Count 198 (130-400) K/uL MPV 9.3 (7.4-10.4) fl Gran % 79.5 (47-80) % Neutrophils % Not Reportable Lymphocytes % 8.4 L (16-45) % Monocytes % 8.1 (0-9) % Eosinophils % 3.7 (0-6) % Basophils % 0.3 (0-6) % Absolute Neutrophils 9.34 Lymphocytes Not Reportable Monocytes Not Reportable Sodium 137 (136-145) mmol/L Potassium 4.4 (3.4-4.5) mmol/L Chloride 98 (98-107) mmol/L Carbon Dioxide 26.0 (22-29) mmol/L Anion Gap 13.0 (7-16) BUN 20 (8-23) mg/dL Creatinine 0.9 (0.7-1.2) mg/dL Estimated GFR > 60 mL/min Random Glucose 118 H (74-109) mg/dL Lactic Acid 1.0 (0.5-2.2) mmol/L Calcium 10.1 (8.8-10.2) mg/dL Disposition Disposition: Discharge (constipation) Clinical Impression: AAA (abdominal aortic aneurysm) without rupture Constipation Qualifiers: Constipation type: other constipation type Qualified Code(s): K59.09 - Other constipation Disposition: Home, Self-Care Condition: (1) Good Instructions: Constipation (ED) Additional Instructions: follow up with family doctor this week. return sooner if worse. push fluids Quality - Quality Measures Quality Measures: N/A - Blood Pressure Screening Does Patient Have Any of the Following: Active Dx of HTN Blood Pressure Classification: Hypertensive Reading Systolic Measurement: 183 Diastolic Measurement: 94 Screening for High Blood Pressure: Patient Exclusion, Hx of HTN [G9744]
--- NOTE | 2019-05-05 11:27 | CT SCAN REPORT ---
EXAM: CT SCAN OF THE ABDOMEN AND PELVIS HISTORY: PATIENT HAS CONSTIPATION. TECHNIQUE: Serial axial CT scan of the abdomen and pelvis was performed at 2.5 mm intervals from the dome of the diaphragm down to the pubic symphysis without the use of intravenous or oral contrast. Comparison: CT scan of the abdomen and pelvis dated 12/10/16 is provided. FINDINGS: Lung windows of the lung bases demonstrate emphysematous changes. Fibrotic changes at the lung bases are unchanged with respect to the prior examination. The visualized heart size and contour is within normal limits. 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 Colonic interposition is identified in this region, otherwise the size and attenuation of the liver is within normal limits. No focal hepatic lesions are identified. The spleen, pancreas, adrenal glands, and gallbladder are unremarkable. The bilateral kidneys demonstrate no CT evidence of hydronephrosis or hydroureter. Vascular calcifications are identified within the bilateral kidneys. Exophytic cysts within the bilateral kidneys appear similar to the prior CT scan. There is a fusiform aneurysmal dilatation of the inferior abdominal aorta to approximately 4.9 cm in diameter. This finding has increased with respect to the prior CT scan. There is no CT evidence of retroperitoneal lymphadenopathy. Prominent lymph nodes are identified within the right inguinal region measuring approximately 1.3 cm in short axis diameter. This finding appears similar to the prior CT scan. There is colonic diverticulosis identified without CT evidence of diverticulitis. The appendix is not clearly identified. There is no CT evidence of free intraperitoneal fluid or free intraperitoneal air. A large amount of stool is identified throughout the large bowel suggesting constipation as is given in the patient's clinical history. The urinary bladder is unremarkable. Bone windows demonstrate no CT evidence of a fracture or dislocation of the visualized osseous structures. 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 IMPRESSION: 1. A LARGE AMOUNT OF STOOL IS NOTED WITHIN THE LARGE BOWEL SUGGESTING CONSTIPATION IS GIVEN IN THE PATIENT'S CLINICAL HISTORY. 2. INCREASE IN SIZE OF THE ABDOMINAL AORTIC ANEURYSM WITH RESPECT TO THE PRIOR CT SCAN. 3. STABLE CT APPEARANCE OF THE BILATERAL RENAL CYSTS WITH RESPECT TO THE PRIOR EXAMINATION. 4. NONSPECIFIC ENLARGED RIGHT INGUINAL LYMPH NODES APPEAR SIMILAR TO THE PRIOR CT SCAN. THESE FINDINGS MAY BE REACTIVE. JOB NUMBER: [id number] [facility]
== END 2019-05-04 14:12 | disposition home or self-care (01) ==
LOC: ER 11:12
DX: I71.4 Abdominal aortic aneurysm, without rupture (principal); K59.00 Constipation, unspecified; I10 Essential (primary) hypertension; R10.84 Generalized abdominal pain; Z87.891 Personal history of nicotine dependence; I48.91 Unspecified atrial fibrillation; Z79.01 Long term (current) use of anticoagulants
CPT/HCPCS: 74176; 80048; 83605; 85027; 99284